=== PATIENT | male | born 1990 | race African-American/Black ===

== ENCOUNTER 2017-06-09 15:56 | Emergency (ER) | payer MEDICARE, BC ==
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
[2017-06-09] MEDS ORDERED: ACETAMINOPHEN 325 MG TABLET PO ONE (17:11)
[2017-06-09] MEDS ORDERED: CLONIDINE HCL 0.1 MG TABLET PO ONE ×2 (17:11→19:03)
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
--- NOTE | 2017-06-09 17:15 | RADIOLOGY REPORT (SQ) ---
EXAM DESCRIPTION: CHEST 2 VIEWS COMPLETED DATE/TIME: 06/09/2017 5:07 pm REASON FOR STUDY: sob COMPARISON: None. EXAM PARAMETERS: NUMBER OF VIEWS: two views TECHNIQUE: Digital Frontal and Lateral radiographic views of the chest acquired. RADIATION DOSE: NA LIMITATIONS: none FINDINGS: LUNGS AND PLEURA: No opacities, masses or pneumothorax. No pleural effusion. MEDIASTINUM AND HILAR STRUCTURES: No masses or contour abnormalities. HEART AND VASCULAR STRUCTURES: Heart normal size. No evidence for failure. BONES: No acute findings. HARDWARE: Venous access catheter. Dual lumen. Tips in the SVC. OTHER: No other significant finding. IMPRESSION: NO ACUTE RADIOGRAPHIC FINDING IN THE CHEST. TECHNICAL DOCUMENTATION: JOB ID: [id number] [employer]- All Rights Reserved Reading location - IP/workstation name: [email or web address]
[2017-06-09 17:38] LABS: ABSOLUTE BASOPHILS # (AUTO) 0.1 10^3/uL (0.0-0.2); ABSOLUTE EOSINOPHILS # (AUTO) 0.1 10^3/uL (0.0-0.6); ABSOLUTE LYMPHOCYTES (AUTO) 1.2 10^3/uL (0.5-4.7); ABSOLUTE MONOCYTES (AUTO) 0.4 10^3/uL (0.1-1.4); ABSOLUTE NEUT (AUTO) 5.1 10^3/uL (1.7-8.2); BASOPHILS % (AUTO) 0.9 % (0-2); EOSINOPHILS % (AUTO) 1.5 % (0-6); HEMATOCRIT 38.4 % (37.9-51.0); HEMOGLOBIN 13.1 g/dL (13.5-17.0); LYMPHOCYTES % (AUTO) 17.4 % (13-45); MEAN CORPUSCULAR HEMOGLOBIN 31.3 pg (27.0-33.4); MEAN CORPUSCULAR HGB CONC 34.2 g/dL (32.0-36.0); MEAN CORPUSCULAR VOLUME 92 fl (80-97); PLATELET COUNT 195 10^3/uL (150-450); RED BLOOD COUNT 4.19 10^6/uL (4.35-5.55); SEGMENTED NEUTROPHILS % (AUTO) 74.2 % (42-78); TOTAL CELLS COUNTED % (AUTO) 100 %; WHITE BLOOD COUNT 6.8 10^3/uL (4.0-10.5)
[2017-06-09 17:57] LABS: ALANINE AMINOTRANSFERASE 15 U/L (21-72); ALBUMIN 4.6 g/dL (3.5-5.0); ALKALINE PHOSPHATASE 72 U/L (38-126); ANION GAP 18 (5-19); ASPARTATE AMINO TRANSFERASE 23 U/L (17-59); BILIRUBIN,DIRECT 0.8 mg/dL (0.0-0.4); BLOOD UREA NITROGEN 21 mg/dL (7-20); CALCIUM 9.8 mg/dL (8.4-10.2); CARBON DIOXIDE 28 mmol/L (22-30); CHLORIDE 100 mmol/L (98-107); CREATINE KINASE 55 U/L (55-170); GLUCOSE 92 mg/dL (75-110); POTASSIUM 3.5 mmol/L (3.6-5.0); TOTAL PROTEIN 8.5 g/dL (6.3-8.2)
[2017-06-09 18:07] LABS: CREATINE KINASE MB 0.27 ng/mL (<4.55); TROPONIN I < 0.012 ng/mL
[2017-06-09 20:04] VITALS: BP 157/106
--- NOTE | 2017-06-09 20:15 | EKG REPORT ---
SEVERITY:- ABNORMAL ECG - SINUS RHYTHM ABNORMAL T, CONSIDER ISCHEMIA, ANT-LAT LEADS : Confirmed by: Norman Smith 09-Jun-2017 20:15:28
== END 2017-06-09 20:08 | disposition home or self-care (01) ==
LOC: ER 15:56
DX: S06.9X9D Unspecified intracranial injury with loss of consciousness of unspecified duration, subsequent encounter (principal); N18.6 End stage renal disease; R51 Headache; I10 Essential (primary) hypertension; Z99.2 Dependence on renal dialysis; W34.00XD Accidental discharge from unspecified firearms or gun, subsequent encounter
CPT/HCPCS: 93005; 99284; 36415; 82553; 82550; 83735; 85025; 80053; 84484; 71046; 70450; 93010; A9270 ×2

== ENCOUNTER 2017-06-26 17:14 | Emergency (ER) | payer MEDICARE, BC ==
[2017-06-26 18:58] VITALS: BP 156/109
[2017-06-26] MEDS ORDERED: CLONIDINE HCL 0.2 MG TABLET PO ONE (18:59)
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
== END 2017-06-26 19:10 | disposition home or self-care (01) ==
LOC: ER 17:14
DX: T65.893A Toxic effect of other specified substances, assault, initial encounter (principal); I12.0 Hypertensive chronic kidney disease with stage 5 chronic kidney disease or end stage renal disease; N18.6 End stage renal disease; Z99.2 Dependence on renal dialysis; Y08.89XA Assault by other specified means, initial encounter; Z87.820 Personal history of traumatic brain injury
CPT/HCPCS: 99283; A9270

== ENCOUNTER 2017-08-25 19:18 | Emergency (ER) | payer MEDICARE, BC ==
[2017-08-25] MEDS ORDERED: ACETAMINOPHEN 325 MG TABLET PO ONE (19:33)
[2017-08-25] MEDS ORDERED: MORPHINE SULFATE IR 15 MG TABLET PO ONE (21:16)
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
--- NOTE | 2017-08-25 22:30 | RADIOLOGY REPORT (SQ) ---
EXAM DESCRIPTION: HUMERUS LEFT; SHOULDER LEFT 2 OR MORE VIEWS COMPLETED DATE/TIME: 08/25/2017 9:51 pm REASON FOR STUDY: left arm pain COMPARISON: None. NUMBER OF VIEWS: Five views. TECHNIQUE: Three views of the left shoulder. Two radiographic images were acquired of the left humerus to include elbow and shoulder in at least o ne projection. LIMITATIONS: None. FINDINGS: MINERALIZATION: Normal. BONES: There is inferior subluxation of the humerus. There is a mildly displaced fracture at the hum eral head. No other acute fracture is seen at the distal humerus. SOFT TISSUES: The soft tissues are unremarkable. No radiopaque foreign body. IMPRESSION: Mildly displaced fracture at the humeral head. Inferior subluxation of the humerus, pro bably due to hemarthrosis at the glenohumeral joint. TECHNICAL DOCUMENTATION: JOB ID: [id number] [employer]- All Rights Reserved Reading location - IP/workstation name: [email or web address]
--- NOTE | 2017-08-25 22:30 | RADIOLOGY REPORT (SQ) ---
EXAM DESCRIPTION: HUMERUS LEFT; SHOULDER LEFT 2 OR MORE VIEWS COMPLETED DATE/TIME: 08/25/2017 9:51 pm REASON FOR STUDY: left arm pain COMPARISON: None. NUMBER OF VIEWS: Five views. TECHNIQUE: Three views of the left shoulder. Two radiographic images were acquired of the left humerus to include elbow and shoulder in at least o ne projection. LIMITATIONS: None. FINDINGS: MINERALIZATION: Normal. BONES: There is inferior subluxation of the humerus. There is a mildly displaced fracture at the hum eral head. No other acute fracture is seen at the distal humerus. SOFT TISSUES: The soft tissues are unremarkable. No radiopaque foreign body. IMPRESSION: Mildly displaced fracture at the humeral head. Inferior subluxation of the humerus, pro bably due to hemarthrosis at the glenohumeral joint. TECHNICAL DOCUMENTATION: JOB ID: [id number] [employer]- All Rights Reserved Reading location - IP/workstation name: [email or web address]
[2017-08-25] MEDS ORDERED: HYDROMORPHONE HCL INJ/PF 2 MG/ML AMPULE IM ONE (22:53)
[2017-08-25] MEDS ORDERED: LIDOCAINE 5% (700 MG) TRANSDERMAL ADH..PATCH TP ONE (22:53)
[2017-08-26 00:09] VITALS: BP 200/102
== END 2017-08-26 00:08 | disposition home or self-care (01) ==
LOC: ER 19:18
DX: S42.292A Other displaced fracture of upper end of left humerus, initial encounter for closed fracture (principal); M25.512 Pain in left shoulder; M79.602 Pain in left arm; R51 Headache; I10 Essential (primary) hypertension; X58.XXXA Exposure to other specified factors, initial encounter; Y92.239 Unspecified place in hospital as the place of occurrence of the external cause
CPT/HCPCS: 99283; 96372; 73060; 73030; A9270 ×2; J1170

== ENCOUNTER 2017-08-26 07:55 | Emergency (ER) | payer MEDICARE, BC ==
--- NOTE | 2017-08-26 08:47 | ER Document Report ---
ED Extremity Problem, Upper - General Chief Complaint: Arm Pain Stated Complaint: ARM PAIN Time Seen by Provider: 08/26/17 08:47 TRAVEL OUTSIDE OF THE [place] IN LAST 30 DAYS: No - Related Data Allergies/Adverse Reactions: tramadol Allergy (Verified 08/26/17 07:57) Past Medical History - Social History Family History: Reviewed & Not Pertinent - Past Medical History Cardiac Medical History: Reports: Hx Hypertension Pulmonary Medical History: Reports: Hx Asthma - childhood Renal/ Medical History: Reports: Hx End Stage Renal Disease, Hx Hemodialysis. Denies: Hx Peritoneal Dialysis Past Surgical History: Reports: Hx Genitourinary Surgery - dialysis cath Physical Exam - Vital signs Vitals: Temp Pulse Resp BP Pulse Ox 98.2 F 97 22 H 175/123 H 99 08/26/17 08:01 08/26/17 08:01 08/26/17 08:01 08/26/17 08:01 08/26/17 08:01 Course - Vital Signs Vital signs: Temp Pulse Resp BP Pulse Ox 98.2 F 97 22 H 175/123 H 99 08/26/17 08:01 08/26/17 08:01 08/26/17 08:01 08/26/17 08:01 08/26/17 08:01 Discharge - Discharge Referrals: MAGEN HAMM MD [Primary Care Provider] - Follow up as needed
[2017-08-26] MEDS ORDERED: ACETAMINOPHEN 325 MG TABLET PO ONE ×2 (08:59→09:15)
[2017-08-26] MEDS ORDERED: IBUPROFEN 400 MG TABLET PO ONE (08:59)
[2017-08-26] MEDS ORDERED: HYDROCODONE/ACETAMINOPHEN 10-325 MG TABLET PO ONE (08:59)
[2017-08-26] MEDS ORDERED: HYDROMORPHONE HCL INJ/PF 2 MG/ML AMPULE IV ONE (09:15)
--- NOTE | 2017-08-26 09:15 | ER Document Report ---
HPI - HPI Patient complains to provider of: Persistent left arm pain Onset: Yesterday Onset/Duration: Persistent Pain Level: 5 Context: 26-year-old hemodialysis male had a injury to his left shoulder when he was in [place] having had surgery. He came to the emergency room last night and they found a humeral head fracture mildly displaced. He was put in a sling and told to take his 7.5 mg hydrocodone that he had for his other surgery. He was given Toradol 60 mg IM which seemed to help last night. While interviewing the patient I noticed that the sling needs to be adjusted and we discussed pain management at home. Associated Symptoms: None Exacerbated by: Movement Relieved by: Denies Similar symptoms previously: No Recently seen / treated by doctor: No - ROS ROS below otherwise negative: Yes Systems Reviewed and Negative: Yes All other systems reviewed and negative Past Medical History - General Information source: Patient - Social History Smoking Status: Unknown if Ever Smoked Frequency of alcohol use: None Drug Abuse: None Lives with: Family Family History: Reviewed & Not Pertinent - Past Medical History Cardiac Medical History: Reports: Hx Hypertension Pulmonary Medical History: Reports: Hx Asthma - childhood Renal/ Medical History: Reports: Hx End Stage Renal Disease, Hx Hemodialysis. Denies: Hx Peritoneal Dialysis Past Surgical History: Reports: Hx Genitourinary Surgery - dialysis cath Vertical Provider Document - CONSTITUTIONAL Agree With Documented VS: Yes Exam Limitations: No Limitations General Appearance: Mild Distress - INFECTION CONTROL TRAVEL OUTSIDE OF THE [place] IN LAST 30 DAYS: No - NECK Neck: Supple - MUSCULOSKELETAL/EXTREMETIES Musculoskeletal/Extremeties: Tender - Proximal left humerus, lidocaine patch over the deltoid - NEURO Level of Consciousness: Alert Motor/Sensory: No Motor Deficit, No Sensory Deficit Notes: 2+ left radial pulse Course - Re-evaluation Re-evalutation: 08/26/17 18:54 We adjusted the sling so that his humerus is better immobilized and he did say that it was more comfortable although his pain level still 5/5. I have given him resources to follow-up with Dr. Zayas and also [facility]. I did give him a prescription for 10 mg hydrocodone instead of the 7.5 that he was using, and also recommended that he can take more Tylenol maximum dose of 4000 mg per day of the acetaminophen. - Vital Signs Vital signs: Temp Pulse Resp BP Pulse Ox 98.2 F 97 22 H 175/123 H 99 08/26/17 08:01 08/26/17 08:01 08/26/17 08:01 08/26/17 08:01 08/26/17 08:01 Discharge - Discharge Clinical Impression: Left humeral head fracture-subacute, Pain management, Dialysis patient Condition: Good Disposition: HOME, SELF-CARE Instructions: Oral Narcotic Medication ([facility]), Sling to be Used ([facility]), Warm Packs ([facility]) Additional Instructions: Use stool softeners since you are taking the opiate pain medication Keep the sling in proper alignment to decrease the pain Warm compress Call for follow-up with Dr. Zayas this week Return to the emergency room any concerns Along with the hydrocodone 10 mg/325 I want to to take [id number] acetaminophen 325 each time you take a pain pill. Maximum acetaminophen is 4000 mg per day Prescriptions: Hydrocodone/Acetaminophen [Hydrocodon-Acetaminophn 10-325] 1 each PO Q4HP PRN # 15 tablet PRN Reason: Forms: Elevated Blood Pressure Referrals: CONNIE ZAYAS MD [ACTIVE STAFF] - 08/27/17 WARREN BREWSTER MD [ACTIVE STAFF] - Follow up tomorrow
[2017-08-26] MEDS ORDERED: HYDROMORPHONE HCL INJ/PF 2 MG/ML AMPULE IM ONE (09:24)
[2017-08-26 10:58] VITALS: BP 168/90
== END 2017-08-26 09:50 | disposition home or self-care (01) ==
LOC: ER 07:55
DX: S42.292D Other displaced fracture of upper end of left humerus, subsequent encounter for fracture with routine healing (principal); X58.XXXD Exposure to other specified factors, subsequent encounter; I12.0 Hypertensive chronic kidney disease with stage 5 chronic kidney disease or end stage renal disease; N18.6 End stage renal disease; Z99.2 Dependence on renal dialysis; Z98.890 Other specified postprocedural states
CPT/HCPCS: 99283; 96372; A9270; J1170

== ENCOUNTER 2017-10-16 16:18 | Emergency (ER) | payer MEDICARE, BC ==
[2017-10-16] MEDS ORDERED: LEVETIRACETAM 500 MG/NACL-ISO 500 MG/100 ML RTUPB IV ONE (18:00)
[2017-10-16] MEDS ORDERED: HYDRALAZINE HCL 25 MG TABLET PO ONE (18:01)
[2017-10-16] MEDS ORDERED: CLONIDINE HCL 0.2 MG TABLET PO ONE (18:01)
[2017-10-16 18:59] LABS: ABSOLUTE BASOPHILS # (AUTO) 0.1 10^3/uL (0.0-0.2); ABSOLUTE LYMPHOCYTES (AUTO) 0.6 10^3/uL (0.5-4.7); ABSOLUTE MONOCYTES (AUTO) 0.5 10^3/uL (0.1-1.4); ABSOLUTE NEUT (AUTO) 8.1 10^3/uL (1.7-8.2); BASOPHILS % (AUTO) 0.8 % (0-2); EOSINOPHILS % (AUTO) 0.4 % (0-6); HEMATOCRIT 33.7 % (37.9-51.0); HEMOGLOBIN 11.5 g/dL (13.5-17.0); LYMPHOCYTES % (AUTO) 6.9 % (13-45); MEAN CORPUSCULAR HGB CONC 34.1 g/dL (32.0-36.0); MEAN CORPUSCULAR VOLUME 94 fl (80-97); MONOCYTES % (AUTO) 5.3 % (3-13); PLATELET COUNT 162 10^3/uL (150-450); RED BLOOD COUNT 3.59 10^6/uL (4.35-5.55); RED CELL DISTRIBUTION WIDTH 15.9 % (11.5-14.0); SEGMENTED NEUTROPHILS % (AUTO) 86.6 % (42-78); TOTAL CELLS COUNTED % (AUTO) 100 %; WHITE BLOOD COUNT 9.3 10^3/uL (4.0-10.5)
[2017-10-16 19:11] LABS: ANION GAP 18 (5-19); BLOOD UREA NITROGEN 32 mg/dL (7-20); CALCIUM 9.7 mg/dL (8.4-10.2); CARBON DIOXIDE 23 mmol/L (22-30); CHLORIDE 99 mmol/L (98-107); GLUCOSE 77 mg/dL (75-110); POTASSIUM 3.9 mmol/L (3.6-5.0); SODIUM 139.9 mmol/L (137-145)
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
[2017-10-16] MEDS ORDERED: LEVETIRACETAM 500 MG TABLET PO ONE (19:40)
[2017-10-16 20:32] VITALS: BP 165/103
== END 2017-10-16 20:15 | disposition home or self-care (01) ==
LOC: ER 16:18
DX: R56.9 Unspecified convulsions (principal); Z79.899 Other long term (current) drug therapy; I12.0 Hypertensive chronic kidney disease with stage 5 chronic kidney disease or end stage renal disease; N18.6 End stage renal disease; Z99.2 Dependence on renal dialysis; Z88.5 Allergy status to narcotic agent
CPT/HCPCS: 99284; 36415; 85025; 80048; A9270 ×3

== ENCOUNTER 2017-11-24 14:56 | Inpatient (IN) | payer MEDICARE, BC, MEDICAID ==
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
[2017-11-24] MEDS ORDERED: LORAZEPAM INJ 2 MG/1 ML VIAL IV ONE ×2 (15:26→17:31)
[2017-11-24] MEDS ORDERED: CLONIDINE HCL 0.2 MG TABLET PO ONE ×3 (15:42→23:59)
[2017-11-24] MEDS ORDERED: LORAZEPAM 1 MG TABLET PO ONE (16:12)
[2017-11-24 16:18] LABS: ABSOLUTE BASOPHILS # (AUTO) 0.1 10^3/uL (0.0-0.2); ABSOLUTE EOSINOPHILS # (AUTO) 0.1 10^3/uL (0.0-0.6); ABSOLUTE LYMPHOCYTES (AUTO) 0.9 10^3/uL (0.5-4.7); ABSOLUTE MONOCYTES (AUTO) 0.4 10^3/uL (0.1-1.4); ABSOLUTE NEUT (AUTO) 4.5 10^3/uL (1.7-8.2); BASOPHILS % (AUTO) 0.9 % (0-2); HEMOGLOBIN 14.2 g/dL (13.5-17.0); LYMPHOCYTES % (AUTO) 15.1 % (13-45); MEAN CORPUSCULAR HEMOGLOBIN 30.8 pg (27.0-33.4); MEAN CORPUSCULAR HGB CONC 33.7 g/dL (32.0-36.0); MEAN CORPUSCULAR VOLUME 92 fl (80-97); MONOCYTES % (AUTO) 6.9 % (3-13); PLATELET COUNT 179 10^3/uL (150-450); RED BLOOD COUNT 4.59 10^6/uL (4.35-5.55); RED CELL DISTRIBUTION WIDTH 14.3 % (11.5-14.0); SEGMENTED NEUTROPHILS % (AUTO) 75.1 % (42-78); TOTAL CELLS COUNTED % (AUTO) 100 %
[2017-11-24 16:31] LABS: APPEARANCE,URINE SLIGHTLY-CLOUDY; BILIRUBIN,URINE NEGATIVE (NEGATIVE); COLOR,URINE YELLOW; GLUCOSE, URINE 150 mg/dL (NEGATIVE); KETONES,URINE NEGATIVE (NEGATIVE); LEUKOCYTE ESTERASE,URINE NEGATIVE (NEGATIVE); NITRITE,URINE NEGATIVE (NEGATIVE); PROTEIN,URINE >=500 mg/dL (NEGATIVE); URINE SPECIFIC GRAVITY 1.011; UROBILINOGEN,URINE NEGATIVE mg/dL (<2.0)
[2017-11-24 16:40] LABS: ALANINE AMINOTRANSFERASE < 6 U/L (21-72); ALBUMIN 5.4 g/dL (3.5-5.0); ALKALINE PHOSPHATASE 82 U/L (38-126); ANION GAP 17 (5-19); ASPARTATE AMINO TRANSFERASE 14 U/L (17-59); BILIRUBIN,DIRECT 0.9 mg/dL (0.0-0.4); BILIRUBIN,TOTAL 1.1 mg/dL (0.2-1.3); BLOOD UREA NITROGEN 27 mg/dL (7-20); CALCIUM 10.1 mg/dL (8.4-10.2); CARBON DIOXIDE 25 mmol/L (22-30); CHLORIDE 97 mmol/L (98-107); GLUCOSE 90 mg/dL (75-110); POTASSIUM 4.5 mmol/L (3.6-5.0); SODIUM 139.4 mmol/L (137-145); TOTAL PROTEIN 9.2 g/dL (6.3-8.2)
[2017-11-24] MEDS ORDERED: HYDRALAZINE HCL INJ/PF 20 MG/1 ML SDV IV ONE (16:41)
[2017-11-24] MEDS ORDERED: METOPROLOL TARTRATE PF/INJ 5 MG/5 ML SDV IV ONE (17:34)
[2017-11-24] MEDS ORDERED: HYDRALAZINE HCL INJ/PF 20 MG/1 ML SDV IV PRN (18:53)
[2017-11-24] MEDS: NICARDIPINE HCL RTU, ISO-OS 20 MG/200 ML RTUINJ IV PRN ×3 (19:08→19:51)
[2017-11-24] MEDS ORDERED: LEVETIRACETAM 500 MG TABLET PO ONE (19:15)
--- NOTE | 2017-11-24 19:31 | RADIOLOGY REPORT (SQ) ---
EXAM DESCRIPTION: CT HEAD WITHOUT COMPLETED DATE/TIME: 11/24/2017 7:01 pm REASON FOR STUDY: htn emergency COMPARISON: 06/09/2017 TECHNIQUE: Axial images acquired through the brain without intravenous contrast. Images reviewed wi th bone, brain and subdural windows. Additional sagittal and coronal reconstructions were generated. Images stored on PACS. All CT scanners at this facility use dose modulation, iterative reconstruction, and/or weight based d osing when appropriate to reduce radiation dose to as low as reasonably achievable (ALARA). [facility]: Dose Right [facility]: CareDose [facility]: Dose Right [facility]: Teradose 4D [facility]: [employer] RADIATION DOSE: CT Rad equipment meets quality standard of care and radiation dose reduction techniq ues were employed. CTDIvol: 53.2 mGy. DLP: 1017 mGy-cm. mGy. LIMITATIONS: Beam hardening artifact on the basis of retained metallic foreign bodies. FINDINGS: VENTRICLES: Stable size and configuration with ex vacuo dilatation of the right lateral ve ntricle on the basis of previous trauma. CEREBRUM: Retained metallic foreign bodies confer significant beam hardening artifact, limiting exami nation. Right parieto-occipital encephalomalacia on the basis of previous trauma. No masses. No he morrhage. No midline shift. No evidence for acute infarction. Normal bobby/white matter differentiat ion. CEREBELLUM: No masses. No hemorrhage. No alteration of density. No evidence for acute infarction. EXTRAAXIAL SPACES: No fluid collections. No masses. ORBITS AND GLOBE: No intra- or extraconal masses. Normal contour of globe without masses. CALVARIUM: Posttraumatic and postsurgical changes, stable. PARANASAL SINUSES: No fluid or mucosal thickening. SOFT TISSUES: Retained radiopaque do that retained metallic foreign bodies within the right scalp. N o mass or hematoma. OTHER: No other significant finding. IMPRESSION: Stable CT appearance of the brain demonstrating posttraumatic and postsurgical changes o f the right cerebrum. No evidence of acute intracranial hemorrhage in this patient with reported hyp ertensive crisis. EVIDENCE OF ACUTE STROKE: NO. COMMENT: Quality ID # [id number]: Final reports with documentation of one or more dose reduction techniques (e.g., Automated exposure control, adjustment of the mA and/or kV according to patient size, use of iterative reconstruction technique) TECHNICAL DOCUMENTATION: JOB ID: [id number] [employer]- All Rights Reserved Reading location - IP/workstation name: [email or web address]
[2017-11-24] MEDS: ACETAMINOPHEN 325 MG TABLET PO PRN (21:04)
--- NOTE | 2017-11-24 21:38 | EKG REPORT ---
SEVERITY:- ABNORMAL ECG - SINUS RHYTHM BORDERLINE RIGHT AXIS DEVIATION NONSPECIFIC T ABNORMALITIES, LATERAL LEADS : Confirmed by: Padilla Marr MD 24-Nov-2017 21:38:31
[2017-11-24] MEDS ORDERED: PROPRANOLOL HCL 40 MG TABLET PO ONE (23:59)
[2017-11-25] MEDS: ACETAMINOPHEN 325 MG TABLET PO PRN (00:10)
[2017-11-25] MEDS ORDERED: LABETALOL HCL INJ 20 MG/4 ML DISP.SYRIN IV PRN (00:19)
[2017-11-25] MEDS ORDERED: ENALAPRILAT DIHYDRATE INJ/PF 1.25 MG/1 ML SDV IV PRN (00:19)
[2017-11-25] MEDS: ONDANSETRON HCL INJ/PF 4 MG/2 ML SDV IV PRN ×3 (03:38→21:50)
[2017-11-25] MEDS: HYDRALAZINE HCL 50 MG TABLET PO SCH ×3 (09:04→18:49)
[2017-11-25] MEDS: CLONIDINE HCL 0.2 MG TABLET PO SCH ×3 (09:05→18:49)
[2017-11-25] MEDS ORDERED: LEVETIRACETAM 500 MG TABLET PO SCH (10:00)
[2017-11-25] MEDS ORDERED: CEPHALEXIN 500 MG CAPSULE PO SCH (10:00)
[2017-11-25] MEDS: LEVETIRACETAM 500 MG TABLET PO SCH (10:56)
[2017-11-25] MEDS: PROPRANOLOL HCL 40 MG TABLET PO SCH ×2 (10:56→18:49)
[2017-11-25] MEDS ORDERED: LOSARTAN POTASSIUM 50 MG TABLET PO SCH (11:15)
--- NOTE | 2017-11-25 11:23 | PDOC PROGRESS REPORT ---
Subjective Progress Note for:: 11/25/17 Subjective:: Patient is feeling much better this morning patient's blood pressure is 160/99 According to the patient's nephrology discussed with her yesterday and suggest the patient is a very noncompliance and that she preferred to keep a blood pressure in a higher range to 160-170 range Patient's denied chest pain denied any shortness of the breath Patient's denied any headache No seizures activity Reason For Visit: HTN EMERGENCY, SEIZURE Physical Exam Vital Signs: Temp Pulse Resp BP Pulse Ox 98.1 F 95 18 164/107 H 99 11/25/17 08:00 11/25/17 08:00 11/25/17 10:32 11/25/17 10:32 11/25/17 10:32 Intake & Output 11/24/17 11/25/17 11/26/17 06:59 06:59 06:59 Intake Total 527 460 Output Total 200 75 Balance 327 385 Weight 94.5 kg General appearance: PRESENT: no acute distress, well-developed, well-nourished Head exam: PRESENT: atraumatic, normocephalic Eye exam: PRESENT: conjunctiva pink, EOMI, PERRLA. ABSENT: scleral icterus Ear exam: PRESENT: normal external ear exam Mouth exam: PRESENT: moist, tongue midline Neck exam: PRESENT: full ROM. ABSENT: carotid bruit, JVD, lymphadenopathy, thyromegaly Respiratory exam: PRESENT: clear to auscultation penny Cardiovascular exam: PRESENT: RRR. ABSENT: diastolic murmur, rubs, systolic murmur Pulses: PRESENT: normal dorsalis pedis pul, +2 pedal pulses bilateral Vascular exam: PRESENT: normal capillary refill GI/Abdominal exam: PRESENT: normal bowel sounds, soft. ABSENT: distended, guarding, mass, organolmegaly, rebound, tenderness Rectal exam: PRESENT: deferred Extremities exam: ABSENT: pedal edema Neurological exam: PRESENT: alert, awake, oriented to person, oriented to place , oriented to time, oriented to situation, CN II-XII grossly intact. ABSENT: motor sensory deficit Psychiatric exam: PRESENT: appropriate affect, normal mood. ABSENT: homicidal ideation, suicidal ideation Skin exam: PRESENT: dry, intact, warm. ABSENT: cyanosis, rash Results Impressions: Head CT 11/24/17 18:44 IMPRESSION: Stable CT appearance of the brain demonstrating posttraumatic and postsurgical changes of the right cerebrum. No evidence of acute intracranial hemorrhage in this patient with reported hypertensive crisis. EVIDENCE OF ACUTE STROKE: NO. Assessment & Plan - Diagnosis (1) Hypertensive emergency Is this a current diagnosis for this admission?: Yes Plan: Currently all get better with the p.o. medications no need for Cardene drip anymoreFollow with the nephrology (2) End stage renal disease Is this a current diagnosis for this admission?: Yes Plan: We will consult the nephrology for the dialysis (3) Traumatic brain injury Is this a current diagnosis for this admission?: Yes (4) Noncompliance Is this a current diagnosis for this admission?: Yes - Time Time Spent with patient: 15-24 minutes Medications reviewed and adjusted accordingly: Yes Anticipated discharge: Home Within: Other - Inpatient Certification Medical Necessity: Need Close Monitoring Due to Risk of Patient Decompensation Post Hospital Care: D/C Instrumentation Controls Engineer Documentation - Plan Summary Plan Summary: Continues to current medications discussed with the nursing staff to keep her blood pressure is 160 Range
[2017-11-25 11:47] LABS: ABSOLUTE BASOPHILS # (AUTO) 0.1 10^3/uL (0.0-0.2); ABSOLUTE LYMPHOCYTES (AUTO) 0.9 10^3/uL (0.5-4.7); ABSOLUTE MONOCYTES (AUTO) 0.6 10^3/uL (0.1-1.4); ABSOLUTE NEUT (AUTO) 9.2 10^3/uL (1.7-8.2); BASOPHILS % (AUTO) 0.8 % (0-2); EOSINOPHILS % (AUTO) 0.2 % (0-6); HEMATOCRIT 41.7 % (37.9-51.0); MEAN CORPUSCULAR HEMOGLOBIN 30.8 pg (27.0-33.4); MEAN CORPUSCULAR HGB CONC 33.6 g/dL (32.0-36.0); MEAN CORPUSCULAR VOLUME 92 fl (80-97); MONOCYTES % (AUTO) 5.8 % (3-13); PLATELET COUNT 183 10^3/uL (150-450); RED BLOOD COUNT 4.56 10^6/uL (4.35-5.55); RED CELL DISTRIBUTION WIDTH 14.1 % (11.5-14.0); SEGMENTED NEUTROPHILS % (AUTO) 85.2 % (42-78); TOTAL CELLS COUNTED % (AUTO) 100 %; WHITE BLOOD COUNT 10.7 10^3/uL (4.0-10.5)
[2017-11-25 11:51] LABS: ANION GAP 17 (5-19); BLOOD UREA NITROGEN 39 mg/dL (7-20); CALCIUM 9.7 mg/dL (8.4-10.2); CARBON DIOXIDE 24 mmol/L (22-30); CHLORIDE 95 mmol/L (98-107); GLUCOSE 96 mg/dL (75-110); SODIUM 135.7 mmol/L (137-145)
[2017-11-25 12:05] LABS: POTASSIUM 5.6 mmol/L (3.6-5.0)
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
[2017-11-26] MEDS ORDERED: NORMAL SALINE 1000 ML 1,000 ML IV PRN (05:00)
[2017-11-26] MEDS ORDERED: HEPARIN SOD (PORCINE) 1,000 UNIT/ML 10 ML VIAL IV PRN (05:00)
[2017-11-26] MEDS: ONDANSETRON HCL INJ/PF 4 MG/2 ML SDV IV PRN (07:47)
[2017-11-26 08:11] LABS: ABSOLUTE BASOPHILS # (AUTO) 0.1 10^3/uL (0.0-0.2); ABSOLUTE EOSINOPHILS # (AUTO) 0.1 10^3/uL (0.0-0.6); ABSOLUTE LYMPHOCYTES (AUTO) 1.2 10^3/uL (0.5-4.7); ABSOLUTE MONOCYTES (AUTO) 0.6 10^3/uL (0.1-1.4); ABSOLUTE NEUT (AUTO) 7.1 10^3/uL (1.7-8.2); BASOPHILS % (AUTO) 0.9 % (0-2); EOSINOPHILS % (AUTO) 0.6 % (0-6); HEMOGLOBIN 13.2 g/dL (13.5-17.0); MEAN CORPUSCULAR HEMOGLOBIN 30.2 pg (27.0-33.4); MEAN CORPUSCULAR HGB CONC 33.1 g/dL (32.0-36.0); MEAN CORPUSCULAR VOLUME 91 fl (80-97); MONOCYTES % (AUTO) 6.2 % (3-13); PLATELET COUNT 166 10^3/uL (150-450); RED BLOOD COUNT 4.39 10^6/uL (4.35-5.55); RED CELL DISTRIBUTION WIDTH 13.9 % (11.5-14.0); SEGMENTED NEUTROPHILS % (AUTO) 79.3 % (42-78); TOTAL CELLS COUNTED % (AUTO) 100 %
[2017-11-26 08:26] LABS: ANION GAP 17 (5-19); BLOOD UREA NITROGEN 50 mg/dL (7-20); CALCIUM 9.6 mg/dL (8.4-10.2); CARBON DIOXIDE 23 mmol/L (22-30); CHLORIDE 96 mmol/L (98-107); GLUCOSE 91 mg/dL (75-110); POTASSIUM 5.3 mmol/L (3.6-5.0); SODIUM 135.7 mmol/L (137-145)
[2017-11-26] MEDS: HYDRALAZINE HCL 50 MG TABLET PO SCH ×3 (12:10→17:26)
[2017-11-26] MEDS: PROPRANOLOL HCL 40 MG TABLET PO SCH ×2 (12:11→17:25)
[2017-11-26] MEDS: CLONIDINE HCL 0.2 MG TABLET PO SCH ×3 (12:11→17:25)
[2017-11-26] MEDS: LEVETIRACETAM 500 MG TABLET PO SCH (12:19)
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
--- NOTE | 2017-11-26 20:35 | PDOC PROGRESS REPORT ---
Subjective Progress Note for:: 11/26/17 Subjective:: Patient was admitted for the management of hypertensive emergency, I discussed with Dr. Carrillo patient is noncompliant with his medical regimen including his hemodialysis therapy. Reason For Visit: HTN EMERGENCY, SEIZURE Physical Exam Vital Signs: Temp Pulse Resp BP Pulse Ox 98.1 F 85 15 117/60 100 11/26/17 20:00 11/26/17 19:29 11/26/17 19:08 11/26/17 19:08 11/26/17 19:08 Intake & Output 11/25/17 11/26/17 11/27/17 06:59 06:59 06:59 Intake Total 527 460 800 Output Total 773 856 7607 Balance 327 -115 -2200 Weight 94.5 kg 96.4 kg General appearance: PRESENT: no acute distress Eye exam: PRESENT: PERRLA Respiratory exam: PRESENT: clear to auscultation penny Cardiovascular exam: PRESENT: +S1, +S2 GI/Abdominal exam: PRESENT: soft Neurological exam: PRESENT: alert Results Laboratory Results: 11/26/17 07:57 11/26/17 07:57 11/26/17 11/26/17 07:57 07:57 WBC 9.0 RBC 4.39 Hgb 13.2 L Hct 40.0 MCV 91 MCH 30.2 MCHC 33.1 RDW 13.9 Plt Count 166 Seg Neutrophils % 79.3 H Lymphocytes % 13.0 Monocytes % 6.2 Eosinophils % 0.6 Basophils % 0.9 Absolute Neutrophils 7.1 Absolute Lymphocytes 1.2 Absolute Monocytes 0.6 Absolute Eosinophils 0.1 Absolute Basophils 0.1 Sodium 135.7 L Potassium 5.3 H Chloride 96 L Carbon Dioxide 23 Anion Gap 17 BUN 50 H Creatinine 15.25 H Est GFR ( Amer) 5 L Est GFR (Non-Af Amer) 4 L Glucose 91 Calcium 9.6 Impressions: Head CT 11/24/17 18:44 IMPRESSION: Stable CT appearance of the brain demonstrating posttraumatic and postsurgical changes of the right cerebrum. No evidence of acute intracranial hemorrhage in this patient with reported hypertensive crisis. EVIDENCE OF ACUTE STROKE: NO. Assessment & Plan - Diagnosis (1) Hypertensive emergency Is this a current diagnosis for this admission?: Yes (2) End stage renal disease Is this a current diagnosis for this admission?: Yes
[2017-11-27 04:16] LABS: ABSOLUTE BASOPHILS # (AUTO) 0.1 10^3/uL (0.0-0.2); ABSOLUTE EOSINOPHILS # (AUTO) 0.1 10^3/uL (0.0-0.6); ABSOLUTE MONOCYTES (AUTO) 0.6 10^3/uL (0.1-1.4); ABSOLUTE NEUT (AUTO) 5.6 10^3/uL (1.7-8.2); BASOPHILS % (AUTO) 1.1 % (0-2); EOSINOPHILS % (AUTO) 1.1 % (0-6); HEMATOCRIT 38.7 % (37.9-51.0); HEMOGLOBIN 13.1 g/dL (13.5-17.0); LYMPHOCYTES % (AUTO) 24.3 % (13-45); MEAN CORPUSCULAR HEMOGLOBIN 30.5 pg (27.0-33.4); MEAN CORPUSCULAR HGB CONC 33.9 g/dL (32.0-36.0); MEAN CORPUSCULAR VOLUME 90 fl (80-97); PLATELET COUNT 161 10^3/uL (150-450); RED BLOOD COUNT 4.29 10^6/uL (4.35-5.55); RED CELL DISTRIBUTION WIDTH 14.3 % (11.5-14.0); SEGMENTED NEUTROPHILS % (AUTO) 66.5 % (42-78); TOTAL CELLS COUNTED % (AUTO) 100 %; WHITE BLOOD COUNT 8.4 10^3/uL (4.0-10.5)
[2017-11-27 04:21] LABS: ANION GAP 18 (5-19); BLOOD UREA NITROGEN 36 mg/dL (7-20); CALCIUM 10.2 mg/dL (8.4-10.2); CARBON DIOXIDE 24 mmol/L (22-30); CHLORIDE 93 mmol/L (98-107); GLUCOSE 91 mg/dL (75-110); SODIUM 134.7 mmol/L (137-145)
[2017-11-27] MEDS: ACETAMINOPHEN 325 MG TABLET PO PRN (07:50)
[2017-11-27 09:28] VITALS: BP 158/104
[2017-11-27] MEDS: LEVETIRACETAM 500 MG TABLET PO SCH (09:28)
[2017-11-27] MEDS: PROPRANOLOL HCL 40 MG TABLET PO SCH (09:28)
[2017-11-27] MEDS: HYDRALAZINE HCL 50 MG TABLET PO SCH (09:28)
[2017-11-27] MEDS: CLONIDINE HCL 0.2 MG TABLET PO SCH (09:28)
--- NOTE | 2017-11-27 18:09 | PDOC DISCHARGE SUMMARY ---
General - Admit/Disc Date/PCP Admission Date/Primary Care Provider: 11/24/17 18:57 MAGEN HAMM MD Discharge Date: 11/27/17 - Discharge Diagnosis (1) End stage renal disease Is this a current diagnosis for this admission?: Yes (2) Hypertensive emergency Is this a current diagnosis for this admission?: Yes - Additional Information Resuscitation Status: Full Code Home Medications: Levetiracetam [Keppra 500 mg Tablet] 500 mg PO DAILY #30 tablet 10/16/17 Clonidine HCl 0.2 mg PO TID 11/24/17 Hydralazine HCl 50 mg PO TID 11/24/17 Propranolol HCl 40 mg PO BID 11/24/17 Sucroferric Oxyhydroxide [Velphoro] 500 mg PO MEALS 11/25/17 History of Present Illness History of Present Illness: CATINA STOVER is a 27 year old male he has end-stage renal disease on maintenance hemodialysis, he was admitted because of concern for hypertensive encephalopathy he had a seizure with a background of systolic blood pressure of more than 200 Hospital Course Hospital Course: Hospital course was uneventful patient very noncompliant with his medication he was seen by nephrology he underwent hemodialysis on this admission., He was severely uncooperative with his overall medical regimen he ultimately left AGAINST MEDICAL ADVICE. Patient is not expected to do well. Continues to be nonchalant with his medical regimen, is medication intake for blood pressure control Physical Exam Vital Signs: Temp Pulse Resp BP Pulse Ox 98.8 F 69 17 158/104 H 100 11/27/17 07:53 11/27/17 07:56 11/27/17 09:08 11/27/17 09:08 11/27/17 09:08 Intake & Output 11/26/17 11/27/17 11/28/17 06:59 06:59 06:59 Intake Total 460 1455 Output Total 575 3200 Balance -115 -1745 Weight 96.4 kg General appearance: PRESENT: no acute distress Eye exam: PRESENT: PERRLA Cardiovascular exam: PRESENT: +S1, +S2 GI/Abdominal exam: PRESENT: soft Neurological exam: PRESENT: alert Results Laboratory Results: 11/27/17 03:52 11/27/17 03:52 11/27/17 11/27/17 03:52 03:52 WBC 8.4 RBC 4.29 L Hgb 13.1 L Hct 38.7 MCV 90 MCH 30.5 MCHC 33.9 RDW 14.3 H Plt Count 161 Seg Neutrophils % 66.5 Lymphocytes % 24.3 Monocytes % 7.0 Eosinophils % 1.1 Basophils % 1.1 Absolute Neutrophils 5.6 Absolute Lymphocytes 2.0 Absolute Monocytes 0.6 Absolute Eosinophils 0.1 Absolute Basophils 0.1 Sodium 134.7 L Potassium 5.0 Chloride 93 L Carbon Dioxide 24 Anion Gap 18 BUN 36 H Creatinine 11.48 H Est GFR ( Amer) 7 L Est GFR (Non-Af Amer) 5 L Glucose 91 Calcium 10.2 Impressions: Head CT 11/24/17 18:44 IMPRESSION: Stable CT appearance of the brain demonstrating posttraumatic and postsurgical changes of the right cerebrum. No evidence of acute intracranial hemorrhage in this patient with reported hypertensive crisis. EVIDENCE OF ACUTE STROKE: NO. Qualifiers - * PATIENT BEING DISCHARGED WITH ANY OF THE FOLLOWING DIAGNOSIS: No
== END 2017-11-27 10:33 | disposition left against medical advice (07) | DRG 304 ==
LOC: ER 14:56 → EH 18:57 → ICU 21:40
PROVIDERS: ADMIT Internal Medicine; ATTEND Internal Medicine
PROC: 5A1D70Z Performance of Urinary Filtration, Intermittent, Less than 6 Hours Per Day (ICD-10-PCS; principal; 2017-11-26)
DX: I16.1 Hypertensive emergency (principal); N18.6 End stage renal disease; I12.0 Hypertensive chronic kidney disease with stage 5 chronic kidney disease or end stage renal disease; E83.39 Other disorders of phosphorus metabolism; D63.1 Anemia in chronic kidney disease; E87.5 Hyperkalemia; G40.909 Epilepsy, unspecified, not intractable, without status epilepticus; Z91.19 Patient's noncompliance with other medical treatment and regimen; Z99.2 Dependence on renal dialysis; Z87.820 Personal history of traumatic brain injury
CPT/HCPCS: 36415; 70450; 80048; 80053; 81001; 85025; 93005; 93010; 96374; 96375; 99291; J0360; J2060; J2405; J3490

== ENCOUNTER 2018-01-15 15:00 | Emergency (ER) | payer MEDICARE, BC ==
[2018-01-15] MEDS ORDERED: MORPHINE SULFATE 10 MG/ML INJ IV ONE (15:42)
[2018-01-15] MEDS ORDERED: ONDANSETRON HCL INJ/PF 4 MG/2 ML SDV IV ONE ×3 (15:42→20:34)
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
[2018-01-15] MEDS: NORMAL SALINE 500 ML IV ONE ×2 (16:25→18:16)
[2018-01-15] MEDS ORDERED: HYDRALAZINE HCL INJ/PF 20 MG/1 ML SDV IV ONE ×2 (16:45→19:31)
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
[2018-01-15] MEDS ORDERED: LABETALOL HCL INJ 20 MG/4 ML DISP.SYRIN IV ONE ×2 (16:46→19:31)
[2018-01-15 17:30] LABS: HEMOGLOBIN 14.7 g/dL (13.5-17.0); MEAN CORPUSCULAR HEMOGLOBIN 29.9 pg (27.0-33.4); MEAN CORPUSCULAR HGB CONC 33.3 g/dL (32.0-36.0); MEAN CORPUSCULAR VOLUME 90 fl (80-97); PLATELET COUNT 130 10^3/uL (150-450); WHITE BLOOD COUNT 15.6 10^3/uL (4.0-10.5)
[2018-01-15 17:46] LABS: ALANINE AMINOTRANSFERASE 10 U/L (21-72); ALBUMIN 5.1 g/dL (3.5-5.0); ALKALINE PHOSPHATASE 107 U/L (38-126); ASPARTATE AMINO TRANSFERASE 16 U/L (17-59); BILIRUBIN,TOTAL 1.1 mg/dL (0.2-1.3); BLOOD UREA NITROGEN 98 mg/dL (7-20); CALCIUM 10.2 mg/dL (8.4-10.2); GLUCOSE 93 mg/dL (75-110); LIPASE 68.9 U/L (23-300); POTASSIUM 4.9 mmol/L (3.6-5.0); TOTAL PROTEIN 8.3 g/dL (6.3-8.2)
[2018-01-15 17:50] LABS: ABSOLUTE LYMPHOCYTES# (MANUAL) 0.8 10^3/uL (0.5-4.7); ABSOLUTE MONOCYTES # (MANUAL) 0.9 10^3/uL (0.1-1.4); ABSOLUTE NEUTROPHILS# (MANUAL) 13.7 10^3/uL (1.7-8.2); BASOPHILS % (MANUAL) 0 % (0-2); EOSINOPHILS % (MANUAL) 1 % (0-6); LYMPHOCYTES % (MANUAL) 5 % (13-45); MONOCYTES % (MANUAL) 6 % (3-13); SEGMENTED NEUTROPHILS % (MAN) 88 % (42-78); TOTAL CELLS COUNTED 100
[2018-01-15 17:51] LABS: ANISOCYTOSIS 1+; PLATELET COMMENT DECREASED; POIKILOCYTOSIS SLIGHT; TOXIC GRANULATION SLIGHT
[2018-01-15 17:53] LABS: CARBON DIOXIDE 17 mmol/L (22-30); CHLORIDE 105 mmol/L (98-107)
[2018-01-15 17:56] LABS: ANION GAP 24 (5-19)
[2018-01-15] MEDS ORDERED: DIPHENHYDRAMINE HCL 50 MG/ML VIAL IV ONE ×2 (18:54→20:34)
[2018-01-15] MEDS ORDERED: CHLORPROMAZINE HCL INJ 25 MG/1 ML AMPULE IV ONE (18:54)
[2018-01-15] MEDS ORDERED: LOPERAMIDE HCL 2 MG CAPSULE PO ONE (20:07)
[2018-01-15] MEDS ORDERED: CLONIDINE HCL 0.2 MG TABLET PO ONE (20:29)
[2018-01-15] MEDS ORDERED: ONDANSETRON ODT 4 MG TAB (6 TAB/ER DISP) PO PRN (20:30)
[2018-01-15 21:17] VITALS: BP 185/109
--- NOTE | 2018-01-15 23:35 | EKG REPORT ---
SEVERITY:- ABNORMAL ECG - SINUS RHYTHM NONSPECIFIC T ABNORMALITIES, LATERAL LEADS BORDERLINE PROLONGED QT INTERVAL : Confirmed by: Estrellita Michael MD 15-Jan-2018 23:34:26
== END 2018-01-15 21:26 | disposition home or self-care (01) ==
LOC: ER 15:00
DX: R06.6 Hiccough (principal); R11.2 Nausea with vomiting, unspecified; R19.7 Diarrhea, unspecified; R10.9 Unspecified abdominal pain; R14.2 Eructation; R94.31 Abnormal electrocardiogram [ECG] [EKG]; I12.0 Hypertensive chronic kidney disease with stage 5 chronic kidney disease or end stage renal disease; N18.5 Chronic kidney disease, stage 5; Z99.2 Dependence on renal dialysis; R56.9 Unspecified convulsions; Z79.899 Other long term (current) drug therapy; Z88.5 Allergy status to narcotic agent
CPT/HCPCS: 93005; 96376; 99284; 96374; 96375; 36415; 83690; 85025; 80053; 84484; 93010; J3230; A9270 ×3; J1200; J0360; J3490; J2270; J2405; J7040

== ENCOUNTER 2018-01-16 10:44 | Inpatient (IN) | payer MEDICARE, BC ==
[2018-01-16] MEDS ORDERED: LEVETIRACETAM 1000 MG/NACL-ISO 1,000 MG/100 ML RTUPB IV ONE (11:50)
[2018-01-16] MEDS ORDERED: LORAZEPAM INJ 2 MG/1 ML VIAL ONE (12:15)
[2018-01-16] MEDS ORDERED: NITROGLYCERIN 10 MG (0.4 MG/HR) PATCH.TD24 TD ONE (13:04)
[2018-01-16 13:08] LABS: ABSOLUTE BASOPHILS # (AUTO) 0.2 10^3/uL (0.0-0.2); ABSOLUTE NEUT (AUTO) 16.1 10^3/uL (1.7-8.2); EOSINOPHILS % (AUTO) 0.2 % (0-6); HEMATOCRIT 38.6 % (37.9-51.0); HEMOGLOBIN 12.8 g/dL (13.5-17.0); LYMPHOCYTES % (AUTO) 5.2 % (13-45); MEAN CORPUSCULAR HEMOGLOBIN 30.7 pg (27.0-33.4); MEAN CORPUSCULAR HGB CONC 33.1 g/dL (32.0-36.0); MEAN CORPUSCULAR VOLUME 93 fl (80-97); MONOCYTES % (AUTO) 5.7 % (3-13); PLATELET COUNT 100 10^3/uL (150-450); RED BLOOD COUNT 4.17 10^6/uL (4.35-5.55); RED CELL DISTRIBUTION WIDTH 16.6 % (11.5-14.0); SEGMENTED NEUTROPHILS % (AUTO) 87.9 % (42-78); TOTAL CELLS COUNTED % (AUTO) 100 %; WHITE BLOOD COUNT 18.3 10^3/uL (4.0-10.5)
[2018-01-16 13:25] LABS: ALANINE AMINOTRANSFERASE < 6 U/L (21-72); ALBUMIN 4.2 g/dL (3.5-5.0); ALKALINE PHOSPHATASE 88 U/L (38-126); ASPARTATE AMINO TRANSFERASE 23 U/L (17-59); BILIRUBIN,DIRECT 0.5 mg/dL (0.0-0.4); BILIRUBIN,TOTAL 0.5 mg/dL (0.2-1.3); BLOOD UREA NITROGEN 101 mg/dL (7-20); CALCIUM 9.2 mg/dL (8.4-10.2); GLUCOSE 85 mg/dL (75-110); TOTAL PROTEIN 6.7 g/dL (6.3-8.2)
[2018-01-16 13:30] LABS: CARBON DIOXIDE 11 mmol/L (22-30); CHLORIDE 103 mmol/L (98-107); SODIUM 143.1 mmol/L (137-145)
[2018-01-16] MEDS ORDERED: METOPROLOL TARTRATE PF/INJ 5 MG/5 ML SDV IV ONE ×3 (13:31→14:25)
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
[2018-01-16 13:36] LABS: ALCOHOL < 10 mg/dL (NONE DETECTED)
[2018-01-16 13:48] LABS: ANION GAP 29 (5-19)
[2018-01-16] MEDS: LEVETIRACETAM 500 MG TABLET PO SCH (16:49)
[2018-01-16] MEDS ORDERED: HYDRALAZINE HCL INJ/PF 20 MG/1 ML SDV IV ONE (20:03)
--- NOTE | 2018-01-16 20:56 | EKG REPORT ---
SEVERITY:- NORMAL ECG - SINUS RHYTHM : Confirmed by: Estrellita Michael MD 16-Jan-2018 20:56:44
[2018-01-16 21:46] LABS: PHOSPHORUS 8.3 mg/dL (2.5-4.5)
[2018-01-16 21:47] LABS: LIPASE 61.2 U/L (23-300)
[2018-01-16 21:51] LABS: CREATINE KINASE MB 4.17 ng/mL (<4.55)
[2018-01-16 21:55] LABS: FREE T4 (FREE THYROXINE) 1.02 ng/dL (0.78-2.19)
[2018-01-16 21:56] LABS: TROPONIN I 0.112 ng/mL
[2018-01-16 21:58] LABS: INTERNATIONAL RATION (INR) 1.02; PARTIAL THROMBOPLASTIN TIME 29.9 SEC (23.5-35.8)
[2018-01-16] MEDS: PROPRANOLOL HCL 40 MG TABLET PO SCH (22:02)
[2018-01-16] MEDS: CLONIDINE HCL 0.2 MG TABLET PO SCH (22:02)
[2018-01-16] MEDS: HEPARIN SOD (PORCINE) 5,000 UNIT/ML 1 ML SYRINGE SUBCUT SCH (22:02)
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
[2018-01-16 22:09] LABS: THYROID STIMULATING HORMONE 0.56 uIU/mL (0.47-4.68)
[2018-01-16] MEDS ORDERED: BISACODYL 5 MG TABEC PO ONE (22:15)
[2018-01-16] MEDS: ONDANSETRON HCL INJ/PF 4 MG/2 ML SDV IV PRN (22:44)
[2018-01-17 03:18] LABS: APPEARANCE,URINE CLEAR; BILIRUBIN,URINE NEGATIVE (NEGATIVE); COLOR,URINE STRAW; GLUCOSE, URINE 150 mg/dL (NEGATIVE); KETONES,URINE NEGATIVE (NEGATIVE); LEUKOCYTE ESTERASE,URINE NEGATIVE (NEGATIVE); NITRITE,URINE NEGATIVE (NEGATIVE); PROTEIN,URINE 100 mg/dL (NEGATIVE); UROBILINOGEN,URINE NEGATIVE mg/dL (<2.0)
[2018-01-17 03:31] LABS: URINE AMPHETAMINES SCREEN NEGATIVE; URINE BARBITURATES SCREEN NEGATIVE; URINE BENZODIAZEPINES SCREEN NEGATIVE; URINE COCAINE SCREEN NEGATIVE; URINE MARIJUANA (THC) SCREEN NEGATIVE; URINE METHADONE SCREEN NEGATIVE; URINE PHENCYCLIDINE SCREEN NEGATIVE
[2018-01-17 03:45] LABS: CREATINE KINASE MB 6.55 ng/mL (<4.55)
[2018-01-17 03:49] LABS: TROPONIN I 0.174 ng/mL
[2018-01-17] MEDS ORDERED: LANSOPRAZOLE 30 MG TAB.RAP.DR PO ONE ×2 (04:45→14:15)
[2018-01-17] MEDS ORDERED: NORMAL SALINE 1000 ML 1,000 ML IV PRN (05:00)
[2018-01-17] MEDS: HEPARIN SOD (PORCINE) 5,000 UNIT/ML 1 ML SYRINGE SUBCUT SCH ×3 (05:05→21:05)
[2018-01-17] MEDS: CLONIDINE HCL 0.2 MG TABLET PO SCH ×4 (05:06→22:40)
[2018-01-17 06:24] LABS: ABSOLUTE BASOPHILS # (AUTO) 0.1 10^3/uL (0.0-0.2); ABSOLUTE EOSINOPHILS # (AUTO) 0.1 10^3/uL (0.0-0.6); ABSOLUTE MONOCYTES (AUTO) 0.8 10^3/uL (0.1-1.4); ABSOLUTE NEUT (AUTO) 10.1 10^3/uL (1.7-8.2); BASOPHILS % (AUTO) 0.8 % (0-2); EOSINOPHILS % (AUTO) 0.7 % (0-6); HEMATOCRIT 33.4 % (37.9-51.0); HEMOGLOBIN 11.3 g/dL (13.5-17.0); LYMPHOCYTES % (AUTO) 8.3 % (13-45); MEAN CORPUSCULAR HEMOGLOBIN 30.6 pg (27.0-33.4); MEAN CORPUSCULAR HGB CONC 33.8 g/dL (32.0-36.0); MEAN CORPUSCULAR VOLUME 91 fl (80-97); MONOCYTES % (AUTO) 6.4 % (3-13); RED BLOOD COUNT 3.69 10^6/uL (4.35-5.55); RED CELL DISTRIBUTION WIDTH 16.3 % (11.5-14.0); SEGMENTED NEUTROPHILS % (AUTO) 83.8 % (42-78); TOTAL CELLS COUNTED % (AUTO) 100 %; WHITE BLOOD COUNT 12.1 10^3/uL (4.0-10.5)
[2018-01-17] MEDS ORDERED: LEVETIRACETAM 500 MG TABLET PO ONE (06:26)
[2018-01-17] MEDS: LEVETIRACETAM 500 MG TABLET PO SCH ×2 (06:35→20:05)
[2018-01-17 06:45] LABS: ALANINE AMINOTRANSFERASE 11 U/L (21-72); ALBUMIN 3.4 g/dL (3.5-5.0); ALKALINE PHOSPHATASE 73 U/L (38-126); ASPARTATE AMINO TRANSFERASE 30 U/L (17-59); BILIRUBIN,DIRECT 0.6 mg/dL (0.0-0.4); BILIRUBIN,TOTAL 0.6 mg/dL (0.2-1.3); BLOOD UREA NITROGEN 115 mg/dL (7-20); CALCIUM 8.6 mg/dL (8.4-10.2); CHOLESTEROL 119.17 mg/dL (0-200); GLUCOSE 96 mg/dL (75-110); POTASSIUM 5.5 mmol/L (3.6-5.0); TOTAL PROTEIN 5.6 g/dL (6.3-8.2); TRIGLYCERIDES 141 mg/dL (<150)
[2018-01-17 06:46] LABS: PLATELET COUNT 66 10^3/uL (150-450)
[2018-01-17 06:54] LABS: ANION GAP 19 (5-19); CARBON DIOXIDE 18 mmol/L (22-30); CHLORIDE 102 mmol/L (98-107)
[2018-01-17 06:56] LABS: DIRECT LDL 66 mg/dL (<100)
[2018-01-17 09:15] LABS: CREATINE KINASE MB 5.53 ng/mL (<4.55)
[2018-01-17 09:24] LABS: TROPONIN I 0.136 ng/mL
[2018-01-17] MEDS: PROPRANOLOL HCL 40 MG TABLET PO SCH ×2 (09:40→21:05)
[2018-01-17] MEDS: ACETAMINOPHEN 325 MG TABLET PO PRN ×2 (13:53→20:04)
[2018-01-17] MEDS: ONDANSETRON HCL INJ/PF 4 MG/2 ML SDV IV PRN (20:05)
--- NOTE | 2018-01-17 20:24 | PDOC PROGRESS REPORT ---
Subjective Progress Note for:: 01/17/18 Subjective:: Patient was seen by the bedside, so he and dialysis undergoing dialysis without any events, he has upper abdominal pain but the abdomen is soft, Reason For Visit: HYPERTENSIVE EMERGENCY,SEIZURE,MISSED HEMODIALYSIS Physical Exam Vital Signs: Temp Pulse Resp BP Pulse Ox 97.3 F 81 18 178/108 H 100 01/17/18 15:35 01/17/18 15:35 01/17/18 15:35 01/17/18 15:35 01/17/18 15:35 Intake & Output 01/16/18 01/17/18 01/18/18 06:59 06:59 06:59 Intake Total 437 0 Output Total 225 Balance 437 -225 Weight 93.7 kg General appearance: PRESENT: no acute distress Eye exam: PRESENT: PERRLA Respiratory exam: PRESENT: clear to auscultation penny Cardiovascular exam: PRESENT: +S1, +S2 GI/Abdominal exam: PRESENT: soft Neurological exam: PRESENT: alert Results Laboratory Results: 01/17/18 05:55 01/17/18 05:55 01/16/18 01/17/18 01/17/18 21:25 02:43 05:55 WBC 12.1 H RBC 3.69 L Hgb 11.3 L Hct 33.4 L MCV 91 MCH 30.6 MCHC 33.8 RDW 16.3 H Plt Count 66 L Seg Neutrophils % 83.8 H Lymphocytes % 8.3 L Monocytes % 6.4 Eosinophils % 0.7 Basophils % 0.8 Absolute Neutrophils 10.1 H Absolute Lymphocytes 1.0 Absolute Monocytes 0.8 Absolute Eosinophils 0.1 Absolute Basophils 0.1 Sodium Potassium Chloride Carbon Dioxide Anion Gap BUN Creatinine Est GFR ( Amer) Est GFR (Non-Af Amer) Glucose Calcium Total Bilirubin AST ALT Alkaline Phosphatase Ammonia 10.4 Total Protein Albumin Triglycerides Cholesterol LDL Cholesterol Direct VLDL Cholesterol HDL Cholesterol Urine Color STRAW Urine Appearance CLEAR Urine pH 7.0 Ur Specific [place] 1.010 Urine Protein 100 H Urine Glucose (UA) 150 H Urine Ketones NEGATIVE Urine Blood MODERATE H Urine Nitrite NEGATIVE Ur Leukocyte Esterase NEGATIVE Urine WBC (Auto) 1 Urine RBC (Auto) 7 01/17/18 05:55 WBC RBC Hgb Hct MCV MCH MCHC RDW Plt Count Seg Neutrophils % Lymphocytes % Monocytes % Eosinophils % Basophils % Absolute Neutrophils Absolute Lymphocytes Absolute Monocytes Absolute Eosinophils Absolute Basophils Sodium 139.0 Potassium 5.5 H Chloride 102 Carbon Dioxide 18 L Anion Gap 19 BUN 115 H Creatinine 21.44 H Est GFR ( Amer) 3 L Est GFR (Non-Af Amer) 3 L Glucose 96 Calcium 8.6 Total Bilirubin 0.6 AST 30 ALT 11 L Alkaline Phosphatase 73 Ammonia Total Protein 5.6 L Albumin 3.4 L Triglycerides 141 Cholesterol 119.17 LDL Cholesterol Direct 66 VLDL Cholesterol 28.0 HDL Cholesterol 27 L Urine Color Urine Appearance Urine pH Ur Specific [place] Urine Protein Urine Glucose (UA) Urine Ketones Urine Blood Urine Nitrite Ur Leukocyte Esterase Urine WBC (Auto) Urine RBC (Auto) 01/17/18 01/17/18 01/17/18 02:57 02:57 08:11 Creatine Kinase 1004 H 900 H CK-MB (CK-2) 6.55 H Troponin I 0.174 01/17/18 08:11 Creatine Kinase CK-MB (CK-2) 5.53 H Troponin I 0.136 Assessment & Plan - Diagnosis (1) Hypertensive emergency Is this a current diagnosis for this admission?: Yes (2) Seizure disorder Is this a current diagnosis for this admission?: Yes (3) End stage renal disease Is this a current diagnosis for this admission?: Yes (4) Upper abdominal pain Is this a current diagnosis for this admission?: Yes
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
[2018-01-17] MEDS ORDERED: HYDRALAZINE HCL INJ/PF 20 MG/1 ML SDV IV PRN (21:28)
[2018-01-17] MEDS ORDERED: HYDRALAZINE HCL 50 MG TABLET PO ONE (22:30)
--- NOTE | 2018-01-18 00:37 | RADIOLOGY REPORT (SQ) ---
EXAM DESCRIPTION: CT ABDOMEN PELVIS WITHOUT IV CONTRAST COMPLETED DATE/TME: 01/17/2018 00:00 CLINICAL HISTORY: 27 years, Male, abdominal pain COMPARISON: None. TECHNIQUE: 372 Images stored on PACS. All CT scanners at this facility use dose modulation, iterative reconstruction, and/or weight based dosing when appropriate to reduce radiation dose to as low as reasonably achievable (ALARA). [facility]: Dose Right [facility]: CareDose [facility]: Dose Right [facility]: Teradose 4D [facility]: [employer] LIMITATIONS: None. FINDINGS: Limited evaluation of the lung bases is unremarkable. The visualized liver, spleen, adrenal glands, pancreas is grossly unremarkable. Atrophic appearance to the kidneys bilaterally. The gallbladder is present. No evidence for bowel obstruction. The appendix is mildly dilated at 7.8 mm. However, no significant surrounding inflammatory change. There is however wall thickening of the cecum, and to lesser degree wall thickening of the remainder of the colon. There is some equivocal pericolonic inflammation. No free air or free fluid. No discrete or defined abscess. IMPRESSION: Diffuse colonic wall thickening, most severely affecting the cecum, consistent with colitis. This is nonspecific.. There is also some equivocal pericolonic inflammatory change. No free air or free fluid. No discrete or defined abscess. The appendix is mildly dilated at 7.8 mm. No significant periappendiceal inflammation although correlate with patient history as early appendicitis, felt unlikely, is not excluded entirely. Atrophic appearance to the kidneys bilaterally.. TECHNICAL DOCUMENTATION: Quality ID # 436: Final reports with documentation of one or more dose reduction techniques (e.g., Automated exposure control, adjustment of the mA and/or kV according to patient size, use of iterative reconstruction technique) copyright 2011 [employer]- All Rights Reserved
[2018-01-18] MEDS: ACETAMINOPHEN 325 MG TABLET PO PRN ×2 (04:08→08:31)
[2018-01-18] MEDS ORDERED: NORMAL SALINE 1000 ML 1,000 ML IV PRN (05:00)
[2018-01-18] MEDS ORDERED: HEPARIN SOD (PORCINE) 1,000 UNIT/ML 10 ML VIAL IV PRN (05:00)
[2018-01-18] MEDS: HYDRALAZINE HCL 50 MG TABLET PO SCH ×3 (05:43→21:43)
[2018-01-18] MEDS: LANSOPRAZOLE 30 MG TAB.RAP.DR PO SCH (05:44)
[2018-01-18] MEDS: HEPARIN SOD (PORCINE) 5,000 UNIT/ML 1 ML SYRINGE SUBCUT SCH ×2 (05:44→17:37)
[2018-01-18] MEDS: CLONIDINE HCL 0.2 MG TABLET PO SCH ×3 (05:44→21:44)
[2018-01-18] MEDS ORDERED: LEVETIRACETAM 500 MG TABLET PO ONE (05:50)
[2018-01-18 05:58] LABS: ABSOLUTE EOSINOPHILS # (AUTO) 0.1 10^3/uL (0.0-0.6); ABSOLUTE LYMPHOCYTES (AUTO) 0.7 10^3/uL (0.5-4.7); ABSOLUTE MONOCYTES (AUTO) 0.6 10^3/uL (0.1-1.4); ABSOLUTE NEUT (AUTO) 5.9 10^3/uL (1.7-8.2); BASOPHILS % (AUTO) 0.6 % (0-2); EOSINOPHILS % (AUTO) 1.3 % (0-6); HEMATOCRIT 29.3 % (37.9-51.0); LYMPHOCYTES % (AUTO) 9.9 % (13-45); MEAN CORPUSCULAR HEMOGLOBIN 30.7 pg (27.0-33.4); MEAN CORPUSCULAR HGB CONC 34.3 g/dL (32.0-36.0); MEAN CORPUSCULAR VOLUME 90 fl (80-97); MONOCYTES % (AUTO) 7.7 % (3-13); RED BLOOD COUNT 3.27 10^6/uL (4.35-5.55); RED CELL DISTRIBUTION WIDTH 16.3 % (11.5-14.0); SEGMENTED NEUTROPHILS % (AUTO) 80.5 % (42-78); TOTAL CELLS COUNTED % (AUTO) 100 %; WHITE BLOOD COUNT 7.4 10^3/uL (4.0-10.5)
[2018-01-18 06:11] LABS: ALANINE AMINOTRANSFERASE 15 U/L (21-72); ALBUMIN 2.8 g/dL (3.5-5.0); ALKALINE PHOSPHATASE 59 U/L (38-126); ANION GAP 14 (5-19); ASPARTATE AMINO TRANSFERASE 25 U/L (17-59); BILIRUBIN,DIRECT 0.5 mg/dL (0.0-0.4); BILIRUBIN,TOTAL 0.7 mg/dL (0.2-1.3); CALCIUM 8.1 mg/dL (8.4-10.2); CARBON DIOXIDE 25 mmol/L (22-30); CHLORIDE 100 mmol/L (98-107); GLUCOSE 88 mg/dL (75-110); SODIUM 138.6 mmol/L (137-145); TOTAL PROTEIN 4.8 g/dL (6.3-8.2)
[2018-01-18 06:22] LABS: BLOOD UREA NITROGEN 69 mg/dL (7-20); POTASSIUM 3.8 mmol/L (3.6-5.0)
[2018-01-18 06:31] LABS: PLATELET COUNT 46 10^3/uL (150-450)
[2018-01-18] MEDS: LEVETIRACETAM 500 MG TABLET PO SCH ×2 (07:28→18:09)
[2018-01-18] MEDS: ONDANSETRON HCL INJ/PF 4 MG/2 ML SDV IV PRN (08:31)
--- NOTE | 2018-01-18 08:49 | RADIOLOGY REPORT (SQ) ---
EXAM DESCRIPTION: U/S ABDOMEN COMPLETE W/O DOP COMPLETED DATE/TIME: 01/18/2018 7:11 am REASON FOR STUDY: Upper abdominal pain COMPARISON: CT abdomen pelvis 01/18/2018 TECHNIQUE: Dynamic and static grayscale images acquired of the abdomen and recorded on PACS. Additio nal selected color Doppler and spectral images recorded. Note: Study does not meet criteria for complete doppler/duplex scan LIMITATIONS: None. FINDINGS: PANCREAS: Midline pancreas unremarkable LIVER: No masses. Echotexture normal. LIVER VASCULATURE: Normal directional flow of the main portal vein and hepatic veins. GALLBLADDER: No stones. Normal wall thickness. No pericholecystic fluid. ULTRASOUND-DETECTED JAMES'S SIGN: Negative. INTRAHEPATIC DUCTS AND COMMON DUCT: CBD and intrahepatic ducts normal caliber. No filling defects. INFERIOR VENA CAVA: Normal flow. AORTA: No aneurysm. RIGHT KIDNEY: 8 cm in length with increased cortical echogenicity from medical renal disease No solid or suspicious masses. 1 cm cyst right mid-pole kidney. No hydronephrosis. No calcification s. LEFT KIDNEY: 8 cm in length with increased cortical echogenicity from medical renal disease. No solid or suspicious masses. No hydronephrosis. No calcifications. SPLEEN: Normal size. No solid masses. PERITONEAL AND PLEURAL SPACES: No ascites or effusions. OTHER: No other significant finding. IMPRESSION: No gallstones or biliary ductal dilatation Small echogenic kidneys from medical renal disease TECHNICAL DOCUMENTATION: JOB ID: [id number] [employer]- All Rights Reserved Reading location - IP/workstation name: [email or web address]
[2018-01-18] MEDS ORDERED: HYDRALAZINE HCL 50 MG TABLET PO SCH ×2 (10:00)
[2018-01-18] MEDS: PROPRANOLOL HCL 40 MG TABLET PO SCH ×2 (11:20→21:43)
[2018-01-18] MEDS ORDERED: HYOSCYAMINE SULFATE 0.125 MG TABLET PO PRN ×2 (14:26→14:29)
--- NOTE | 2018-01-18 15:14 | PDOC PROGRESS REPORT ---
Subjective Progress Note for:: 01/18/18 Subjective:: I am seeing the patient during dialysis treatment this afternoon. He is still complaining of some abdominal pain or discomfort. He did have abdominal ultrasound but it was negative. He denies any nausea and vomiting and tells me he is able to eat some. He denies loose bowel movements but his stools are not formed as well. His blood pressure is also been elevated. Last night I adjusted his doses of his hydralazine and clonidine and increased dose. He did not offer any other complaints. So far he has not been observed to have any other seizure activity. Reason For Visit: HYPERTENSIVE EMERGENCY,SEIZURE,MISSED HEMODIALYSIS Physical Exam Vital Signs: Temp Pulse Resp BP Pulse Ox 98.3 F 96 20 178/109 H 96 01/18/18 12:15 01/18/18 14:00 01/18/18 12:15 01/18/18 12:15 01/18/18 12:15 Intake & Output 01/17/18 01/18/18 01/19/18 06:59 06:59 06:59 Intake Total 437 236 610 Output Total 225 200 Balance 437 11 410 Weight 93.7 kg 98.7 kg Vitals during dialysis: Blood pressure 218/127, heart rate of 80, blood flow rate of 300 mL/min, dialysate flow rate of 600 and more per minute. Exam: General appearance: PRESENT: no acute distress, cooperative, well-developed, well-nourished Head exam: PRESENT: atraumatic, normocephalic Eye exam: PRESENT: conjunctiva pink, PERRLA. ABSENT: scleral icterus Neck exam: ABSENT: JVD Respiratory exam: PRESENT: Normal breath sounds. ABSENT: crackles, rales, rhonchi, unlabored, wheezes Cardiovascular exam: PRESENT: Regular rate rhythm -+S1, +S2. ABSENT: diastolic murmur, systolic murmur GI/Abdominal exam: PRESENT: normal bowel sounds, soft. Mild tenderness in the upper abdomen. ABSENT: guarding, mass Extremities exam: ABSENT: No edema Neurological exam: PRESENT: alert, awake, oriented to person, place and time. Skin exam: PRESENT: dry, warm, Results Laboratory Results: 01/18/18 05:16 01/18/18 05:16 01/18/18 01/18/18 05:16 05:16 WBC 7.4 RBC 3.27 L Hgb 10.0 L Hct 29.3 L MCV 90 MCH 30.7 MCHC 34.3 RDW 16.3 H Plt Count 46 L Seg Neutrophils % 80.5 H Lymphocytes % 9.9 L Monocytes % 7.7 Eosinophils % 1.3 Basophils % 0.6 Absolute Neutrophils 5.9 Absolute Lymphocytes 0.7 Absolute Monocytes 0.6 Absolute Eosinophils 0.1 Absolute Basophils 0.0 Sodium 138.6 Potassium 3.8 D Chloride 100 Carbon Dioxide 25 Anion Gap 14 BUN 69 H D Creatinine 14.09 H Est GFR ( Amer) 5 L Est GFR (Non-Af Amer) 4 L Glucose 88 Calcium 8.1 L Total Bilirubin 0.7 AST 25 ALT 15 L Alkaline Phosphatase 59 Total Protein 4.8 L Albumin 2.8 L 01/17/18 01/17/18 01/17/18 02:57 02:57 08:11 Creatine Kinase 1004 H 900 H CK-MB (CK-2) 6.55 H Troponin I 0.174 01/17/18 08:11 Creatine Kinase CK-MB (CK-2) 5.53 H Troponin I 0.136 Impressions: Abdomen/Pelvis CT 01/17/18 00:00 IMPRESSION: Diffuse colonic wall thickening, most severely affecting the cecum, consistent with colitis. This is nonspecific.. There is also some equivocal pericolonic inflammatory change. No free air or free fluid. No discrete or defined abscess. The appendix is mildly dilated at 7.8 mm. No significant periappendiceal inflammation although correlate with patient history as early appendicitis, felt unlikely, is not excluded entirely. Atrophic appearance to the kidneys bilaterally.. TECHNICAL DOCUMENTATION: Quality ID # 436: Final reports with documentation of one or more dose reduction techniques (e.g., Automated exposure control, adjustment of the mA and/or kV according to patient size, use of iterative reconstruction technique) copyright 2011 [employer]- All Rights Reserved Abdomen Ultrasound 01/18/18 00:00 IMPRESSION: No gallstones or biliary ductal dilatation Small echogenic kidneys from medical renal disease Assessment & Plan - Diagnosis (1) End stage renal disease Is this a current diagnosis for this admission?: Yes Plan: We will do dialysis today for 3 hours, using the patient's right IJ PermCath, with 2 potassium bath, blood flow rate of 300 mL per minute, dialysate flow rate of 600 mL per minute, ultrafiltration only 500 mL as tolerated as he appears to be still on the dry side due to poor oral intake for the last few days, no heparin and no Procrit. Patient will be monitored throughout dialysis treatment and adjust therapy as necessary. Next dialysis will be on Sunday if the patient still in the hospital. (2) Seizure Is this a current diagnosis for this admission?: Yes Plan: On Keppra. (3) Upper abdominal pain Is this a current diagnosis for this admission?: Yes Plan: Etiology uncertain. (4) Hyperkalemia Is this a current diagnosis for this admission?: Yes Plan: Resolved. (5) Uncontrolled hypertension Is this a current diagnosis for this admission?: Yes Plan: I adjusted the doses of his hydralazine and clonidine last night with as needed IV hydralazine. (6) Nausea, vomiting and diarrhea Is this a current diagnosis for this admission?: Yes Plan: Improving. (7) Noncompliance Is this a current diagnosis for this admission?: Yes - Time Time with patient: 15-25 minutes
[2018-01-18] MEDS ORDERED: MAG HYDROX/AL HYDROX/SIMETH SUSP 30 ML UDCUP PO ONE ×2 (15:30→18:00)
[2018-01-18] MEDS ORDERED: LIDOCAINE 2% VISCOUS SOLN 20 ML UDCUP PO ONE (15:30)
[2018-01-18] MEDS ORDERED: METOCLOPRAMIDE HCL ORAL SOLN 10 MG/10 ML UDCUP PO ONE ×2 (15:30→18:00)
[2018-01-18] MEDS ORDERED: LACTOBACILLUS ACIDOPHILUS 250 MG TAB PO SCH (18:00)
--- NOTE | 2018-01-18 21:37 | PROGRESS NOTE E ---
Progress Note NAME: CATINA STOVER : 1990 AGE: 27Y DATE: 01/18/2018 ROOM: 326 SUBJECTIVE: I saw the patient today while on dialysis. Apparently, the patient had requested to see another provider, preferably with the hospitalist service. Therefore, I evaluated the patient. The patient complains of what is described to be an upper abdominal pain, almost epigastric. The patient gives a difficult history. Is not very clear with the quality of his pain or the characteristics of his pain, not really able to articulate any exacerbating factors. He says that lying still and pain medication help his pain. I went over in detail the patient's imaging and chemistries. The patient does not have any significantly elevated LFTs. His lipase was unremarkable. The patient ate 100% of his last meal. The patient does admit to some loose stools, but this has not been visualized by nursing staff. I read extensively in the patient's history he does have a long history of what appears to be medical noncompliance. The patient freely admits to Signing off the dialysis machines at about the 2 hour du. The patient also cannot verbalize his medications or the frequency in which he takes medications. The patient verbalizes the reason he would like to see another provider is that he needs pain medications. REVIEW OF SYSTEMS: The rest of the review of systems is unremarkable. MEDICATIONS: Medications have been reviewed. OBJECTIVE: GENERAL: The patient is a 27-year-old -[place] male who is awake, alert, and oriented to person, place, time, and situation. He is verbal, conversational, and does not appear to be distressed. VITAL SIGNS: Temperature 98.3, pulse 81, respirations 20, blood pressure 178/109, oxygen saturation is 96% on room air. SKIN: Warm, dry. No rashes, not diaphoretic. HEENT: Pupils are reactive. Conjunctivae pink. No evidence of JVP. CVS: Heart is regular. No rub. CHEST: Clear, symmetrical, unlabored. ABDOMEN: Soft, nontender. EXTREMITIES: No clubbing, cyanosis, or edema. PSYCHIATRIC: The patient can be easily agitated. DIAGNOSTICS/LAB VALUES: Hematology obtained on 01/18/2018: WBC 7.4, hemoglobin 10.0, hematocrit 29.3, platelet count 46,000. Chemistry obtained on 01/18/2018: Sodium 138, potassium 3.8, chloride 100, carbon dioxide 25, BUN 69, creatinine 14.09, glucose 88, calcium 8.1, bilirubin 0.7, AST 25, ALT 15, alkaline phosphatase 59. Total protein 48, albumin 2.8. ASSESSMENT AND PLAN: 1. ABDOMINAL PAIN. Uncertain of the etiology of this. The patient's imaging has been essentially unremarkable. The patient did have thickening as per CT scan, but no overt findings. The patient did have an abdominal ultrasound which was found to be unremarkable. To sort through differentials, will go ahead and give a dose of GI cocktail. Additionally, will obtain stool studies and start the patient on probiotic therapy, and follow. 2. END-STAGE RENAL DISEASE/STAGE CHRONIC KIDNEY DISEASE. The patient is dialysis dependent at this point. The patient's potassium overall has improved. Creatinine came down with his treatment. The patient has been highly encouraged to remain compliant with his treatments. 3. ANEMIA OF CHRONIC KIDNEY DISEASE. Appears overall stable. 4. THROMBOCYTOPENIA. Uncertain of the exact etiology of this. The patient appears to have fallen a little every day. Will hold his heparin at this point in time. Will go ahead and send HIT antibodies. 5. SEIZURE DISORDER. This is due to the patient's TBI. Will continue his dose of Keppra and follow. 6. HYPERTENSION. This is very obviously poorly controlled, but chronic for him. A goal blood pressure would be a systolic of less than 160. The patient's medications have been adjusted by Dr. Crarillo. I have encouraged the patient to comply with his current regimen. 7. SECONDARY HYPERPARATHYROIDISM. Management per Nephrology. DISPOSITION: The patient is a DNR/DNI. Pending the patient's symptomatology and diagnostic findings, will reevaluate in the a.m. Time spent on this new patient including assessment, plan, physical examination, patient education, extensive review of records, and specialty collaboration is 60 minutes. DICTATING PHYSICIAN: JENNIFER TAYLOR NP [id number] PHY#: [id number] ID: [id number] JOB#: [id number] ACCT: [id number] cc: > [facility]
[2018-01-19 05:16] VITALS: BP 145/83
[2018-01-19] MEDS ORDERED: LEVETIRACETAM 500 MG TABLET PO ONE (05:40)
[2018-01-19] MEDS: LEVETIRACETAM 500 MG TABLET PO SCH (05:44)
[2018-01-19] MEDS: HYDRALAZINE HCL 50 MG TABLET PO SCH (05:44)
[2018-01-19] MEDS: LANSOPRAZOLE 30 MG TAB.RAP.DR PO SCH (05:45)
[2018-01-19] MEDS: CLONIDINE HCL 0.2 MG TABLET PO SCH (05:45)
[2018-01-19 06:34] LABS: ABSOLUTE EOSINOPHILS # (AUTO) 0.2 10^3/uL (0.0-0.6); ABSOLUTE LYMPHOCYTES (AUTO) 0.9 10^3/uL (0.5-4.7); ABSOLUTE MONOCYTES (AUTO) 0.5 10^3/uL (0.1-1.4); ABSOLUTE NEUT (AUTO) 4.2 10^3/uL (1.7-8.2); BASOPHILS % (AUTO) 0.7 % (0-2); EOSINOPHILS % (AUTO) 2.7 % (0-6); HEMATOCRIT 27.1 % (37.9-51.0); HEMOGLOBIN 9.2 g/dL (13.5-17.0); LYMPHOCYTES % (AUTO) 14.7 % (13-45); MEAN CORPUSCULAR HEMOGLOBIN 30.4 pg (27.0-33.4); MEAN CORPUSCULAR HGB CONC 34.1 g/dL (32.0-36.0); MEAN CORPUSCULAR VOLUME 89 fl (80-97); MONOCYTES % (AUTO) 8.9 % (3-13); RED BLOOD COUNT 3.04 10^6/uL (4.35-5.55); RED CELL DISTRIBUTION WIDTH 16.2 % (11.5-14.0); TOTAL CELLS COUNTED % (AUTO) 100 %; WHITE BLOOD COUNT 5.8 10^3/uL (4.0-10.5)
[2018-01-19 06:46] LABS: ALANINE AMINOTRANSFERASE 9 U/L (21-72); ALBUMIN 2.8 g/dL (3.5-5.0); ALKALINE PHOSPHATASE 59 U/L (38-126); ANION GAP 10 (5-19); ASPARTATE AMINO TRANSFERASE 23 U/L (17-59); BILIRUBIN,DIRECT 0.4 mg/dL (0.0-0.4); BILIRUBIN,TOTAL 0.6 mg/dL (0.2-1.3); BLOOD UREA NITROGEN 49 mg/dL (7-20); CALCIUM 8.1 mg/dL (8.4-10.2); CARBON DIOXIDE 28 mmol/L (22-30); CHLORIDE 100 mmol/L (98-107); GLUCOSE 90 mg/dL (75-110); POTASSIUM 3.8 mmol/L (3.6-5.0); TOTAL PROTEIN 4.7 g/dL (6.3-8.2)
[2018-01-19 06:50] LABS: PLATELET COUNT 40 10^3/uL (150-450)
--- NOTE | 2018-01-20 11:57 | DISCHARGE SUMMARY E ---
AGAINST MEDICAL ADVICE SUMMARY NAME: CATINA STOVER : 1990 AGE: 27Y ADMITTED: 01/16/2018 DISCHARGED: 01/19/2018 AGAINST MEDICAL ADVICE SUMMARY CODE STATUS: Do not resuscitate, do not intubate. PRIMARY CARE PROVIDER: Madina Huerta MD DIAGNOSES: Working diagnoses at the time the patient left against medical advice includes: 1. Abdominal pain, uncertain of the etiology. 2. Chronic kidney disease stage 6. 3. Anemia of chronic disease. 4. Thrombocytopenia. 5. Seizure disorder. 6. Hypertension. 7. Secondary hyperparathyroidism. MEDICATIONS: Medications the patient was taking prior to leaving against medical advice includes: 1. Catapres 0.2 mg p.o. q. 8 hours. 2. Apresoline 50 mg p.o. on Sunday and Sunday t.i.d. 3. Keppra 500 mg p.o. daily. 4. Inderal 40 mg p.o. q. 12 hours. DIET: Was recommended renal. ACTIVITY: Was recommended as tolerated. DIAGNOSTICS: Lab values are as follows: Hematology obtained on 01/16/2018: WBCs of 5.8, hemoglobin 10.2, hematocrit was 27.1, platelet count is 40,000. Coagulation obtained on 01/16/2018: PT is 14.0. INR is 1.02. Chemistries obtained on 01/20/2108: Sodium is 138, potassium is 4.8, chloride is 100, carbon dioxide 28, BUN 49, creatinine is 11.04, glucose 90. A1c is 4.6. Calcium is 8.1. Magnesium is 2.0, bilirubin 0.6, AST 23, ALT is 9, alk phos 59. CK 900, CK-MB is 5.53. Troponin is 0.136. Total protein 4.7, albumin 2.8, triglycerides 141, cholesterol 119, LDL 66, VLDL is 28, HDL is 27. Amylase 129, lipase is 61. TSH is 0.56. T4 is 1.02. Urinalysis obtained on 01/17/2018: Color straw, appearance clear, pH 9.07, specific gravity is 1.019, protein 100, glucose 150, ketones negative, occult blood moderate, nitrite negative, bilirubin negative, urobilinogen negative, is negative, WBCs 1, RBCs 7. Ascorbic acid is negative. Toxicology obtained on 01/17/2018 is grigsby negative. Serum alcohol level less than 10. Keppra level is pending. Immunology: HIT antibodies are pending. Microbiology obtained on 01/16/2018 reveals no growth. The abdominal ultrasound obtained on 01/18/2018 reveals no gallstones or biliary duct dilation. Small echogenic kidneys from medical renal disease. CT of the abdomen and pelvis obtained on 01/17/2018 reveals diffuse colonic wall thickening, which is nonspecific. No free air. No discrete or defined abscesses. No significant periappendiceal inflammation. VITAL SIGNS: Temperature is 98.3, pulse 80, respirations 20, blood pressure is 145/83, oxygen saturation is 97% on room air. HISTORY OF PRESENT ILLNESS: The patient is a 27-year-old -[place] male with a past medical history of end-stage renal disease and poorly-controlled hypertension. The patient presented to the emergency department with a chief complaint of having high blood pressures. The patient apparently had had a seizure at home and was transferred from his residence to the emergency room for evaluation. The patient's blood pressure that was recorded in the emergency department was in very hypertensive range. The patient has missed 2 sessions of outpatient hemodialysis as well. While in the emergency department, the patient was loaded with Keppra and was referred to his primary care provider for admission. HOSPITAL COURSE: The patient was admitted to [facility]. The patient was continued on Keppra. The patient was seen by his sole stitcher hand and blood pressure medication adjustments were made. The patient was dialyzed on 01/18/2018. The patient was reportedly quite angry that his primary care provider was not giving him the pain medications. Therefore, he asked to be seen by the hospitalist service. Upon my evaluation of the patient, he specifically asked to pain medication and declined any further imaging, stating that he needed his pain taken care of. The patient did have no focal tenderness, no guarding, no rigidity, just the diffuse abdominal pain that appeared to be more concentrated in the left upper quadrant. The patient was given GI cocktail and was not happy with his care, and the patient was not providing stool specimens in spite of him saying that he was having diarrhea, and the patient was educated regarding his need to remain in the hospital. The patient was educated by nursing staff regarding the implications of leaving AMA, which do include . However, the patient was insistent upon leaving against medical advice. This did happen prior to my arrival in the a.m. Time spent on this AMA summary is 8 minutes. DICTATING PHYSICIAN: JENNIFER TAYLOR NP [id number] PHY#: [id number] ID: [id number] JOB#: [id number] ACCT: [id number] cc:Emerald PARIKH NP > MTDD
== END 2018-01-19 07:05 | disposition home or self-care (01) | DRG 304 ==
LOC: ER 10:44 → EH 13:52 → 3S 21:18
PROVIDERS: ADMIT Internal Medicine; ATTEND Internal Medicine
PROC: 5A1D90Z Performance of Urinary Filtration, Continuous, Greater than 18 hours Per Day (ICD-10-PCS; principal; 2018-01-17)
PROC: 5A1D90Z Performance of Urinary Filtration, Continuous, Greater than 18 hours Per Day (ICD-10-PCS; 2018-01-18)
DX: I16.1 Hypertensive emergency (principal); N18.6 End stage renal disease; N25.81 Secondary hyperparathyroidism of renal origin; I67.4 Hypertensive encephalopathy; I12.0 Hypertensive chronic kidney disease with stage 5 chronic kidney disease or end stage renal disease; D63.1 Anemia in chronic kidney disease; D69.6 Thrombocytopenia, unspecified; Z66 Do not resuscitate; G40.909 Epilepsy, unspecified, not intractable, without status epilepticus; E83.39 Other disorders of phosphorus metabolism; E87.5 Hyperkalemia; Z60.2 Problems related to living alone; Z91.15 Patient's noncompliance with renal dialysis; Z87.820 Personal history of traumatic brain injury; Z79.899 Other long term (current) drug therapy; Z88.6 Allergy status to analgesic agent; Z82.49 Family history of ischemic heart disease and other diseases of the circulatory system; Z84.1 Family history of disorders of kidney and ureter
CPT/HCPCS: 36415; 74176; 76700; 80048; 80053; 80061; 80076; 80177; 80307; 81001; 82140; 82150; 82550; 82553; 82962; 83036; 83690; 83735; 84100; 84439; 84443; 84484; 85025; 85610; 85730; 86022; 87040; 93005; 93010; 96365; 96375; 99285; J0360; J1953; J2060; J2405; J3490

== ENCOUNTER 2018-02-19 23:05 | Emergency (ER) | payer MEDICARE, BC ==
[2018-02-19] MEDS ORDERED: LEVETIRACETAM 1000 MG/NACL-ISO 1,000 MG/100 ML RTUPB IV ONE (23:20)
[2018-02-19] MEDS ORDERED: HYDRALAZINE HCL INJ/PF 20 MG/1 ML SDV IV ONE (23:22)
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
[2018-02-20 01:30] LABS: HEMATOCRIT 30.1 % (37.9-51.0); HEMOGLOBIN 10.1 g/dL (13.5-17.0); MEAN CORPUSCULAR HEMOGLOBIN 31.4 pg (27.0-33.4); MEAN CORPUSCULAR HGB CONC 33.5 g/dL (32.0-36.0); MEAN CORPUSCULAR VOLUME 94 fl (80-97); PLATELET COUNT 145 10^3/uL (150-450); RED BLOOD COUNT 3.21 10^6/uL (4.35-5.55); RED CELL DISTRIBUTION WIDTH 15.3 % (11.5-14.0); WHITE BLOOD COUNT 11.9 10^3/uL (4.0-10.5)
[2018-02-20 01:42] LABS: ALANINE AMINOTRANSFERASE 14 U/L (21-72); ALBUMIN 4.2 g/dL (3.5-5.0); ALKALINE PHOSPHATASE 87 U/L (38-126); ANION GAP 17 (5-19); ASPARTATE AMINO TRANSFERASE 11 U/L (17-59); BILIRUBIN,DIRECT 0.8 mg/dL (0.0-0.4); BILIRUBIN,TOTAL 0.8 mg/dL (0.2-1.3); BLOOD UREA NITROGEN 79 mg/dL (7-20); CALCIUM 8.8 mg/dL (8.4-10.2); CARBON DIOXIDE 19 mmol/L (22-30); CHLORIDE 104 mmol/L (98-107); GLUCOSE 71 mg/dL (75-110); SODIUM 139.5 mmol/L (137-145); TOTAL PROTEIN 6.4 g/dL (6.3-8.2)
[2018-02-20 01:53] LABS: POTASSIUM 6.1 mmol/L (3.6-5.0)
[2018-02-20 02:04] LABS: ABSOLUTE LYMPHOCYTES# (MANUAL) 0.6 10^3/uL (0.5-4.7); ABSOLUTE MONOCYTES # (MANUAL) 0.7 10^3/uL (0.1-1.4); ABSOLUTE NEUTROPHILS# (MANUAL) 10.6 10^3/uL (1.7-8.2); ANISOCYTOSIS SLIGHT; BASOPHILS % (MANUAL) 0 % (0-2); EOSINOPHILS % (MANUAL) 0 % (0-6); LYMPHOCYTES % (MANUAL) 5 % (13-45); MONOCYTES % (MANUAL) 6 % (3-13); PLATELET COMMENT DECREASED; SEGMENTED NEUTROPHILS % (MAN) 89 % (42-78); TOTAL CELLS COUNTED 100; TOXIC VACUOLATION PRESENT
[2018-02-20] MEDS ORDERED: INSULIN REG, HUMAN 100 UNIT/ML 3 ML VIAL (PYX) IV ONE (02:38)
[2018-02-20] MEDS ORDERED: DEXTROSE 50%-WATER 25 GM/50 ML DISP.SYRIN IV ONE (02:38)
[2018-02-20] MEDS ORDERED: HYDRALAZINE HCL 50 MG TABLET PO ONE (02:55)
[2018-02-20] MEDS ORDERED: CLONIDINE HCL 0.2 MG TABLET PO SCH ×2 (03:00→10:00)
[2018-02-20] MEDS ORDERED: CLONIDINE HCL 0.2 MG TABLET PO ONE (03:10)
[2018-02-20] MEDS ORDERED: ACETAMINOPHEN 325 MG TABLET PO ONE (03:42)
[2018-02-20] MEDS ORDERED: DIAZEPAM INJ 10 MG/2 ML DISP.SYRIN IV ONE (04:30)
[2018-02-20 04:39] LABS: ANION GAP 16 (5-19); BLOOD UREA NITROGEN 82 mg/dL (7-20); CALCIUM 8.8 mg/dL (8.4-10.2); CARBON DIOXIDE 18 mmol/L (22-30); CHLORIDE 106 mmol/L (98-107); GLUCOSE 43 mg/dL (75-110); SODIUM 139.5 mmol/L (137-145)
[2018-02-20 04:55] LABS: POTASSIUM 4.9 mmol/L (3.6-5.0)
[2018-02-20 07:07] VITALS: BP 172/116
--- NOTE | 2018-02-20 07:19 | ER Document Report ---
Doctor's Note Notes: 02/20/18 07:18 I assumed care from Dr. Julio this morning pending arrangements for dialysis today. Patient's care was discussed with Dr. Carrillo who has arranged for him to receive dialysis at 1145 this morning at the [facility]. Patient will be discharged and encouraged to go to his dialysis appointment today. His repeat potassium after treatment last night was improved. He is stable for discharge. He will take the medications prescribed by Dr. Julio as directed.
--- NOTE | 2018-02-20 17:56 | EKG REPORT ---
SEVERITY:- OTHERWISE NORMAL ECG - SINUS TACHYCARDIA BORDERLINE RIGHT AXIS DEVIATION ST ELEV, PROBABLE NORMAL EARLY REPOL PATTERN : Confirmed by: Norman Smith 20-Feb-2018 17:55:25
== END 2018-02-20 07:28 | disposition home or self-care (01) ==
LOC: ER 23:05
DX: G40.909 Epilepsy, unspecified, not intractable, without status epilepticus (principal); I12.0 Hypertensive chronic kidney disease with stage 5 chronic kidney disease or end stage renal disease; N18.6 End stage renal disease; Z99.2 Dependence on renal dialysis; R06.83 Snoring; R00.0 Tachycardia, unspecified; R25.2 Cramp and spasm; Z66 Do not resuscitate; Z88.5 Allergy status to narcotic agent
CPT/HCPCS: 93005; 99284; 96375; 96365; 96366; 36415; 82962; 85025; 80048; 80053; 93010; A9270 ×4; J3490; J3360; J0360; J1953; J1815

== ENCOUNTER 2018-02-26 19:24 | Emergency (ER) | payer MEDICARE, BC, MEDICAID ==
[2018-02-26] MEDS ORDERED: LEVETIRACETAM 500 MG/NACL-ISO 500 MG/100 ML RTUPB IV ONE (20:10)
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
[2018-02-26 20:20] LABS: ABSOLUTE BASOPHILS # (AUTO) 0.1 10^3/uL (0.0-0.2); ABSOLUTE EOSINOPHILS # (AUTO) 0.1 10^3/uL (0.0-0.6); ABSOLUTE LYMPHOCYTES (AUTO) 0.9 10^3/uL (0.5-4.7); ABSOLUTE MONOCYTES (AUTO) 0.3 10^3/uL (0.1-1.4); ABSOLUTE NEUT (AUTO) 4.4 10^3/uL (1.7-8.2); BASOPHILS % (AUTO) 0.9 % (0-2); EOSINOPHILS % (AUTO) 2.2 % (0-6); HEMATOCRIT 32.2 % (37.9-51.0); LYMPHOCYTES % (AUTO) 15.5 % (13-45); MEAN CORPUSCULAR VOLUME 94 fl (80-97); MONOCYTES % (AUTO) 5.9 % (3-13); PLATELET COUNT 160 10^3/uL (150-450); RED BLOOD COUNT 3.43 10^6/uL (4.35-5.55); SEGMENTED NEUTROPHILS % (AUTO) 75.5 % (42-78); TOTAL CELLS COUNTED % (AUTO) 100 %; WHITE BLOOD COUNT 5.8 10^3/uL (4.0-10.5)
[2018-02-26 20:42] LABS: ALANINE AMINOTRANSFERASE 10 U/L (21-72); ALBUMIN 4.6 g/dL (3.5-5.0); ALKALINE PHOSPHATASE 89 U/L (38-126); ANION GAP 11 (5-19); ASPARTATE AMINO TRANSFERASE 18 U/L (17-59); BILIRUBIN,DIRECT 0.9 mg/dL (0.0-0.4); BILIRUBIN,TOTAL 0.9 mg/dL (0.2-1.3); BLOOD UREA NITROGEN 38 mg/dL (7-20); CARBON DIOXIDE 30 mmol/L (22-30); CHLORIDE 99 mmol/L (98-107); GLUCOSE 98 mg/dL (75-110); PHOSPHORUS 5.1 mg/dL (2.5-4.5); TOTAL PROTEIN 7.2 g/dL (6.3-8.2)
[2018-02-26] MEDS ORDERED: ACETAMINOPHEN 325 MG TABLET PO ONE (20:55)
[2018-02-26] MEDS ORDERED: HYDRALAZINE HCL 50 MG TABLET PO ONE (21:06)
[2018-02-26] MEDS ORDERED: CLONIDINE HCL 0.2 MG TABLET PO ONE (21:06)
[2018-02-26 21:27] VITALS: BP 189/129
--- NOTE | 2018-02-27 07:27 | EKG REPORT ---
SEVERITY:- ABNORMAL ECG - SINUS RHYTHM ABNORMAL T, CONSIDER ISCHEMIA, LATERAL LEADS BORDERLINE PROLONGED QT INTERVAL : Confirmed by: Estrellita Michael MD 27-Feb-2018 07:26:48
== END 2018-02-26 21:34 | disposition home or self-care (01) ==
LOC: ER 19:24
DX: G40.909 Epilepsy, unspecified, not intractable, without status epilepticus (principal); Z79.899 Other long term (current) drug therapy; I12.0 Hypertensive chronic kidney disease with stage 5 chronic kidney disease or end stage renal disease; N18.6 End stage renal disease; D63.1 Anemia in chronic kidney disease; Z99.2 Dependence on renal dialysis; R51 Headache
CPT/HCPCS: 93005; 99284; 96365; 36415; 83735; 84100; 85025; 80053; 93010; A9270 ×3; J1953